=== PATIENT | male | born 1980 | race Caucasian/White ===

== ENCOUNTER 2022-02-14 11:58 | Outpatient (CLI) | payer BC, SELFPAY ==
--- NOTE | ~2022-02-14 | XR_ITS ---
EXAMINATION: XR foot RT min 3V DATE: 02/14/2022 12:19 INDICATION: Right foot pain. TECHNIQUE: 4 views of right foot were obtained. COMPARISON: None. FINDINGS: There is mild hallux valgus. No fracture. There is mild osteoarthritis of first, second, an d third metatarsophalangeal joints and second proximal interphalangeal joint. There is an enthesophyt e at plantar aspect of calcaneal tuberosity. IMPRESSION: 1. Mild hallux valgus. 2. Mild polyarticular osteoarthritis. Reviewed, dictated and finalized at location B.
== END 2022-02-14 11:59 | disposition home or self-care (01) ==
LOC: ANHIMG 12:04
PROVIDERS: PCP Family Medicine; Visit Provider Emergency Medicine
DX: M19.071 Primary osteoarthritis, right ankle and foot (principal); M20.11 Hallux valgus (acquired), right foot
CPT/HCPCS: 73630

== ENCOUNTER 2023-03-21 01:47 | Day surgery (SDC) | payer BC, SELFPAY ==
[2023-03-04 14:11] VITALS: BMI 28.8
--- NOTE | 2023-03-21 07:28 | PM.HPGS ---
History of Present Illness History of Present Illness Consent: Risks, benefits, and alternatives have been discussed and questions answered. Patient agrees to proceed with procedure. Chief complaint: rectal pain, diarrhea Narrative: Michael Leger is a 42 year old male With complaints of hemorrhoids, abdominal pain, IBS with diarrhea. He will have several loose stools each day. This has been going on for at least 15 years. He had been given prescription for dicyclomine which did not help. Review of Systems Review of Systems: All systems reviewed & are unremarkable except as noted in HPI and below PMFSH Past Medical History Medical History Diarrhea GERD (gastroesophageal reflux disease) Rectal itching Social History Social History Smoking status: Current every day smoker Tobacco type: e-cigarettes/vaping Substance use: current Substance use type: marijuana Living arrangements: with family Spiritual care concerns: No Meds Home Medications and Allergies Home Medications Medication Instructions Recorded Confirmed Type escitalopram oxalate 10 mg tablet 10 mg PO DAILY 02/06/23 03/04/23 History (Lexapro) esomeprazole magnesium 20 mg 20 mg PO DAILY 02/06/23 03/04/23 History capsule,delayed release (Nexium) trazodone 150 mg tablet 150 mg PO QHS PRN Sleep 02/06/23 03/04/23 History hyoscyamine sulfate 0.125 mg 0.125 mg PO .every 6 hours PRN 02/10/23 03/04/23 Rx tablet (Levsin) abdominal pain #120 tabs hydrocortisone 2 %-pramoxine 1 % 1 applic topical BID-TID PRN 02/11/23 03/04/23 Rx topical gel with perineal hemorrhoids #29 grams applicator Allergies Allergy/AdvReac Type Severity Reaction Status Date / Time Penicillins Allergy Severe HIVES Verified 03/21/23 08:45 sulfamethoxazole Allergy rash Verified 03/21/23 08:45 trimethoprim Allergy rash Verified 03/21/23 08:45 Exam Resp: Auscultation: clear to auscultation bilaterally Cardio: Rate: regular rate Rhythm: regular rhythm GI: GI Palp: Yes Soft to palpation and No Tenderness to palpation present (GI) Assessment and Plan Assessment and plan (1) Diarrhea: Code(s): R19.7 - Diarrhea, unspecified Status: Acute Assessment and Plan: Colonoscopy with possible biopsy or polypectomy or cautery or injection of substances.
[2023-03-21 08:46] VITALS: BP 124/83; PULSE 60; RESP 19; TEMP 36.1; O2SAT 98
[2023-03-21] MEDS: LACTATED RINGERS 1,000 ML 150 ML IV CONT (09:06)
--- NOTE | 2023-03-21 09:47 | P.PNAN_ITS ---
Anes - Initial Pre Proc Eval Procedure: Operation Date: 03/21/23 10:00 Proposed Procedures p Colonoscopy - Guido Coker MD Date/Time: 03/21/23 09:47 Surgeon: Guido Coker MD Pre Op Diagnosis: rectal pain, diarrhea Patient Data Age: 42 Gender: M Height: 1.75 m Weight: 90.2 kg Last Vital Signs Temp 97 F L 03/21/23 08:46 Pulse 60 03/21/23 08:46 Resp 19 03/21/23 08:46 BP 124/83 03/21/23 08:46 Pulse Ox 98 03/21/23 08:46 O2 Del Method Room Air 03/21/23 08:46 Allergies Allergy/AdvReac Type Severity Reaction Status Date / Time Penicillins Allergy Severe HIVES Verified 03/21/23 08:45 sulfamethoxazole Allergy rash Verified 03/21/23 08:45 trimethoprim Allergy rash Verified 03/21/23 08:45 Home Medications Medication Instructions Recorded Confirmed Type escitalopram oxalate 10 mg tablet 10 mg PO DAILY 02/06/23 03/04/23 History (Lexapro) esomeprazole magnesium 20 mg 20 mg PO DAILY 02/06/23 03/04/23 History capsule,delayed release (Nexium) trazodone 150 mg tablet 150 mg PO QHS PRN Sleep 02/06/23 03/04/23 History hyoscyamine sulfate 0.125 mg 0.125 mg PO .every 6 hours PRN 02/10/23 03/04/23 Rx tablet (Levsin) abdominal pain #120 tabs hydrocortisone 2 %-pramoxine 1 % 1 applic topical BID-TID PRN 02/11/23 03/04/23 Rx topical gel with perineal hemorrhoids #29 grams applicator Patient hx anesthesia problems: none Family hx anesthesia problems: none Results Review: All pre-operative results and documents have been reviewed as part of the pre- operative evaluation. [facility] Past Medical History Medical History Diarrhea GERD (gastroesophageal reflux disease) Rectal itching Social History Social History Smoking status: Current every day smoker Tobacco type: e-cigarettes/vaping Substance use: current Substance use type: marijuana Living arrangements: with family Spiritual care concerns: No Anes - Eval Final PreProcedure Day of Procedure 03/21/23 09:47 Patient weight: normal Heart: regular rate and rhythm Lungs: clear to auscultation Airway: Mallampati scale class II Neurological: alert and oriented Last oral intake: >/= 8 hours ASA classification: II Emergent: no Anesthetic plan: proceed Anesthesia type and monitoring: general GIVS and standard monitoring Results Review: All pre-operative results and documents have been reviewed as part of the pre- operative evaluation. Informed Consent: The patient's anesthetic plan and its attendant risks and benefits were di scussed with the patient/family/POA. Questions were solicited and answers provided to the satisfaction of the patient/family/POA.
[2023-03-21 10:09] VITALS: BP 83/57; PULSE 59; RESP 19; O2SAT 94
[2023-03-21 10:19] VITALS: BP 84/52; PULSE 60; RESP 19; O2SAT 94
[2023-03-21 10:29] VITALS: BP 114/74; PULSE 60; RESP 19; O2SAT 94
== END 2023-03-21 10:40 | disposition home or self-care (01) ==
PROVIDERS: PCP Family Medicine; Visit Provider Internal Medicine Gastroenterology
PROC: 0DJD8ZZ Inspection of Lower Intestinal Tract, Via Natural or Artificial Opening Endoscopic (ICD-10-PCS; CPT 45378; principal; 2023-03-21 10:00)
DX: R19.7 Diarrhea, unspecified (principal); R10.9 Unspecified abdominal pain; D12.8 Benign neoplasm of rectum; K64.8 Other hemorrhoids; K21.9 Gastro-esophageal reflux disease without esophagitis; F17.290 Nicotine dependence, other tobacco product, uncomplicated
CPT/HCPCS: 45380; 88305; J2001; J2704; J7120

== ENCOUNTER 2025-03-24 02:19 | Day surgery (SDC) | payer OTHER, SELFPAY ==
[2025-03-18 15:39] VITALS: BMI 29.4
--- OUTSIDE RECORDS SUMMARY | 2025-03-24 02:22 | XMS_ITS | Patient Health Record ---
Author Organization [facility] [place] Address [address] [place] [address] Care Team Providers Care Outside Parts Salesman Name Role Phone Kaden De La Cruz MD Primary Care Provider Unavail able Judy Meneses Unavailable [phone] Jessica Martinez Unavailable [phone] Karina Hernandez Unavailable [phone] Allergies Allergen (clinical drug ingredient) Drug/Non Drug Allergy documented on EMR Reaction Allergy Type Onset Date Status Penicillin Unknown Drug Allergy Active Substance with sulfonamide structure and antibacterial mechanism of action (substance) Sulfa Antibiotics Unknown Drug Allergy Active Results Component Value Reference Range Notes UDT Reviewed date:06/09/2024 05:02:38 PM Interpretation: Performing Lab: Notes/Report: THC pos 0 - 50 ng/ml Cocaine neg 0 - 300 ng/ml Amphetamine neg 0 - 1000 ng/ml Buprenorphine (BUP) neg 0 - 10 ng/ml Secobarbital (Bar) neg 0 - 300 ng/ml Oxazepam (BZO) neg 0 - 300 ng/ml 9-hzxcxydece-1,7-dzethvze-9,3-diphenylpyrrolidine (STEFFI P) neg 0 - 300 ng/ml Methamphetamine (MET) neg 0 - 1000 ng/ml Methylenedioxymethamphetamine (MDMA) neg 0 - 500 ng/ml Morphine (MOP 300/[id number]) neg 0 - 300 ng/ml Methadone (MTD) neg 0 - 300 ng/ml Phencyclidine (PCP) neg 0 - 25 ng/ml Nortriptyline (TCA) neg 0 - 1000 ng/ml Oxycodone neg 0 - 300 ng/ml x neg 0 - 300 ng/ml Reason For Referral No Information Medications Medication SIG (Take, Route, Frequency, Duration) Notes Start Date End Date Status ARIPiprazole 5 MG 1 tablet Orally Once a day for 90 days Active Sertraline HCl 100 MG 2 tablet every morning Oral Once a day for 90 days Active traZODone HCl 100 MG 1-2 tablets at bedtime Orally Once a day for 90 days As needed Active ZyrTEC-D Allergy & Congestion 5-120 MG TAKE ONE TABLET BY MOUTH TWICE DAILY Oral for 12 Days Active Albuterol Sulfate HFA 108 (90 Base) MCG/ACT Inhalation for 25 Days Not-Taking busPIRone HCl 10 MG 1 tablet Oral three times a day for 90 days three times a day, can skip third dose if needed 10/04/2024 05/08/2025 Active Albuterol Sulfate HFA 108 (90 Base) MCG/ACT INHALE 1 TO 2 PUFFS BY MOUTH AT ONSET OF SHORTNESS OF BREATH PRIOR TO EXERCISING Inhalation for 25 Days Active Vitamin D (Ergocalciferol) 1.25 MG (01129 UT) Oral for 84 Days Active Triamcinolone Acetonide 0.5 % APPLY TOPICALLY TO THE AFFECTED AREA OF FACE 1 TO 2 TIMES A DAY External for 7 Days Active Social History Tobacco Use: Social History Observation Description Date Details (start date - stop date) Unknown Sex Assigned At : Social History Observation Description Sex Assigned At Male Tobacco Control (Standard) Question Answer Notes Tobacco use: Uses tobacco in other forms When did you stop smoking? 06/07/2013 How long has it been since you last smoked? Dinorah ter than 10 years AUDIT-C (Standard) Question Answer Notes Did you have a drink contain ing alcohol in the past year? No How often did you have six o r more drinks on one occasion in the past year? Never (0 point) How many drinks did you have on a typical day when you were drinking in the past year? 1 or 2 drinks (0 point) How often did you have a dri nk containing alcohol in the past year? Monthly or less (1 point) Section Notes: Lives in [place] with 2nd of 2 yrs and his child and their 2 step children. Grew up local, 1 sibling. 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 Lives in [place] with 2nd of 2 yrs and his child and their 2 step children. Grew up local, 1 sibling. 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 Lives in [place] with 2nd of 2 yrs and his child and their 2 step children. Grew up local, 1 sibling. 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 Lives in [place] with 2nd of 2 yrs and his child and their 2 step children. Grew up local, 1 sibling. 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 Lives in [place] with 2nd of 2 yrs and his child and their 2 step children. Grew up local, 1 sibling. 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 Lives in [place] with 2nd of 2 yrs and his child and their 2 step children. Grew up local, 1 sibling. 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 Lives in [place] with 2nd of 2 yrs and his child and their 2 step children. Grew up local, 1 sibling. 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 Lives in [place] with 2nd of 2 yrs and his child and their 2 step children. Grew up local, 1 sibling. 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 Lives in [place] with 2nd of 2 yrs and his child and their 2 step children. Grew up local, 1 sibling. 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 Lives in [place] with 2nd of 2 yrs and his child and their 2 step children. Grew up local, 1 sibling. 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 Lives in [place] with 2nd of 2 yrs and his child and their 2 step children. Grew up local, 1 sibling. 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 Lives in [place] with 2nd of 2 yrs and his child and their 2 step children. Grew up local, 1 sibling. 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 Lives in [place] with 2nd of 2 yrs and his child and their 2 step children. Grew up local, 1 sibling. 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 Problems Problem Type SNOMED Code ICD Code Onset Dates Problem Status W/U Status Risk Notes Problem Mild recurrent major depression (82766131) Major depressive disorder, recurrent, mild (F33.0) Active confirmed Problem Generalized anxiety disorder (36963837) Generalized anxiety disorder (F41.1) Active confirmed Problem Chronic insomnia (235612110) Chronic insomnia (F51.04) Active confirmed Problem Nondependent cannabis abuse (104482958) Marijuana use (F12.90) Active confirmed Problem Obstructive sleep apnea (71589001) Obstructive sleep apnea (G47.33) Active confirmed Problem Panic disorder (262917186) Panic attacks (F41.0) Active confirmed Problem Moderate recurrent major depression (85261424) Moderate recurrent major depression (F33.1) Active confirmed Problem Tobacco use (751688558) Nicotine use (Z72.0) Active confirmed Vital Signs Heart Rate 69 /min 02/07/2025 Height-cm 175.26 cm 02/07/2025 Blood pressure diastolic 98 mm Hg 02/07/2025 Weight-kg 93.53 kg 02/07/2025 Height 69 in 02/07/2025 Blood pressure systolic 162 mm Hg 02/07/2025 Weight 206.2 lbs 02/07/2025 BMI 30.45 kg/m2 02/07/2025 Encounters Encounter Location Date Provider Diagnosis [facility] Reminder [facility] [address] [facility] [address] [address] 10/05/2024 Jessica Martinez [facility] [place] [address] [facility] [address] [address] 06/09/2024 Karina Hernandez Moderate recurrent major depression F33.1 ; Generalized anxiety disorder F41.1 ; Chronic insomnia F51.04 ; Panic attacks F41.0 ; Marijuana use F12.90 and Other alf (current) drug therapy Z79.899 [facility] Rem[facility] [place] [address] [facility] [address] [address] 07/07/2024 Karina Hernandez Moderate recurrent major depression F33.1 ; Generalized anxiety disorder F41.1 ; Chronic insomnia F51.04 ; Panic attacks F41.0 ; Marijuana use F12.90 and Other alf (current) drug therapy Z79.[address] [address] 07/20/2024 Jessica Hemann Moderate recurrent major depression F33.1 and Generalized anxiety disorder F41.[address] [address] 08/18/2024 Jessica Hemann Generalized anxiety disorder F41.1 ; Panic attacks F41.0 and Moderate recurrent major depression F33.[address] [address] 08/20/2024 Karina David Moderate recurrent major depression F33.1 ; Generalized anxiety disorder F41.1 ; Chronic insomnia F51.04 ; Panic attacks F41.0 ; Marijuana use F12.90 and Other alf (current) drug therapy Z79.[address] [address] 09/09/2024 Jessica Hemann Generalized anxiety disorder F41.1 ; Panic attacks F41.0 and Moderate recurrent major depression F33.[address] [address] 10/04/2024 Judy Meneses Moderate recurrent major depression F33.1 ; Generalized anxiety disorder F41.1 ; Panic attacks F41.0 ; Chronic insomnia F51.04 and Marijuana use F12.[address] [address] 11/15/2024 Judy Meneses Moderate recurrent major depression F33.1 ; Generalized anxiety disorder F41.1 ; Panic attacks F41.0 ; Chronic insomnia F51.04 and Marijuana use F12.[address] [address] 12/20/2024 Jessica Hemann Generalized anxiety disorder F41.1 ; Panic attacks F41.0 and Moderate recurrent major depression F33.[address] [address] 12/28/2024 Judy Meneses Moderate recurrent major depression F33.1 ; Generalized anxiety disorder F41.1 ; Panic attacks F41.0 ; Chronic insomnia F51.04 ; Marijuana use F12.90 and Obstructive sleep apnea G47.33 [place] [address] [place] [address] 01/18/2025 Jessica Hemann Generalized anxiety disorder F41.1 ; Panic attacks F41.0 ; Moderate recurrent major depression F33.1 and Encounter for screening for depression Z13.31 [facility], [place] [address] [place] [address] 02/07/2025 Judy Meneses Major depressive disorder, recurrent, mild F33.0 ; Generalized anxiety disorder F41.1 ; Chronic insomnia F51.04 ; Panic attacks F41.0 ; Nicotine use Z72.0 ; Encounter for screening for cardiovascular disorders Z13.6 ; Dietary counseling and surveillance Z71.3 and Encounter for screening for depression Z13.31 [facility], [place] [address] [place] [address] 02/16/2025 Jessica Hemhaylee Encounter for screening for depression Z13.31 ; Moderate recurrent major depression F33.1 and Generalized anxiety disorder F41.1 [place] [address] [place] [address] 03/16/2025 Jessica Hemhaylee Encounter for screening for depression Z13.31 ; Moderate recurrent major depression F33.1 ; Panic attacks F41.0 and Generalized anxiety disorder F41.1 [facility], [place] [address] [place] [address] 06/09/2024 Karina Hernandez [facility], [place] [address] [place] [address] 11/26/2024 Jessica Martinez [facility], [place] [address] [place] [address] 11/03/2024 Judy Meneses [facility], [place] [address] [place] [address] 11/15/2024 Judy Meneses [facility], [place] [address] [place] [address] 01/13/2025 Judy Meneses [facility], [place] [address] [place] [address] 01/13/2025 Judy Meneses Chronic insomnia F51.04 [facility], [place] [address] [place] [address] 01/31/2025 Judy Meneses [facility] [address] [place] [address] 01/31/2025 Judy Meneses [facility] [address] [place] [address] 01/31/2025 Judy Meneses [facility] [address] [place] [address] 02/01/2025 Judy Meneses Assessments Encounter Date Diagnosis (ICD Code) Assessment Notes Treatment Notes Treatment Clinical Notes Section Notes 06/09/2024 Moderate recurrent major depression (ICD-10 - F33.1) decrease lexapro to 10mg daily x 1 wk, then 5mg daily x 1 wk, then stop at the same time start sertraline 25mg qam x 1wk, then 50mg qam refer to therapy dx: moderate MDDR, PHILIP, chronic insomnia, panic attacks-currently controlled diff: trauma hx cannabis daily-discussed potential impact on sx decrease caffeine RAJNI-does not use CPAP reports long haul covid sx/lungs/brain fog BP 146/93-says very anxious today UDS +THC discuss dx and tx considerations. change or adjunct SSRI, pros/cons. Shared decision to first try zoloft. review r/b/se, possible discontinuation effects. next may increase or consider trintellix, wellbutrin, clonidine. Also consider spravato, TMS if not improving, brief overview. interested in individual counseling, refer here, sent case to dipak, she will contact pt to schedule f/u in 3-4 wks, earlier if concerns. 06/09/2024 Generalized anxiety disorder (ICD-10 - F41.1) SSRI, therapy as above decrease caffeine 12/28/2024 Moderate recurrent major depression (ICD-10 - F33.1) Depression - Improved since starting aripiprazole, still some lingering symptoms and inquires about dose increase - Reports sertraline has been beneficial Plan: - Continue Sertraline 200 mg daily for now - Increase aripiprazole to 5 mg daily - Consider switching to another medication if no significant improvement - consider trintellix, wellbutrin. Also consider spravato, TMS if not improving - Monitor for any side effects or worsening of symptoms, restlessness, involuntary movements - Continue therapy with Jessica Anxiety/Panic - Anxiety better, no panic attacks since last visit - buspirone hard to take multiple doses a day, unclear of benefit Plan: - cont sertraline and therapy as above - cont buspirone 10 mg TID for now - monitor for improvements with increasing aripiprazole Insomnia - falls asleep, has a hard time staying asleep - Trazodone no longer benefiting even fter dose increase - Disclose history on uncontrolled sleep apnea Plan: - Stop trazodone - Start hydroxyzine 50 mg, 1 -2 tablets at beditme. may take half upon waking - Practice good sleep hygiene Sleep Apnea - Discloses history of sleep apnea but not currently using CPAP machine Plan: - Encourage patient to discuss sleep apnea management with primary care provider - Explore different mask options - Consider a repeat sleep study Substance Use (Cannabis) - Daily use Plan: - Discussed potential risks of cannabis use on mental health and treatment - Encouraged cessation, monitor for worsening mood r anxiety Follow-up in 4 weeks to evaluate the patient's anxiety, sleep, and mood. Adjust medication regimen as needed based on the patient's response to treatment. 10/04/2024 Generalized anxiety disorder (ICD-10 - F41.1) Assessment and Plan: 1. Depression: reports depression ongoing, some but not signficant improvement - Plan: Continue Sertraline 200 mg daily for now. Consider switching to another medication if no significant improvement in the next follow-up. Monitor for any side effects or worsening of symptoms. Continue therapy with Jessica 2. Anxiety - anxiety still persistent, reports having one panic attack recently Plan: cont sertraline and therapy as above start buspirone 10 mg TID 2. Insomnia: - Plan: Continue Trazodone 150 mg at night as needed for sleep. Consider increasing the dose if sleep and restfulness do not improve. Practice good sleep hygiene 5. Substance Use (Cannabis): - Plan: Discussed potential risks of cannabis use on mental health and treatment Encouraged cessation, monitor for worsening mood r anxiety Follow-up in 4-6 weeks to evaluate the patient's anxiety, sleep, and mood. Adjust medication regimen as needed based on the patient's response to treatment. 10/04/2024 Moderate recurrent major depression (ICD-10 - F33.1) Assessment and Plan: 1. Depression: reports depression ongoing, some but not signficant improvement - Plan: Continue Sertraline 200 mg daily for now. Consider switching to another medication if no significant improvement in the next follow-up. Monitor for any side effects or worsening of symptoms. Continue therapy with Jessica 2. Anxiety - anxiety still persistent, reports having one panic attack recently Plan: cont sertraline and therapy as above start buspirone 10 mg TID 2. Insomnia: - Plan: Continue Trazodone 150 mg at night as needed for sleep. Consider increasing the dose if sleep and restfulness do not improve. Practice good sleep hygiene 5. Substance Use (Cannabis): - Plan: Discussed potential risks of cannabis use on mental health and treatment Encouraged cessation, monitor for worsening mood r anxiety Follow-up in 4-6 weeks to evaluate the patient's anxiety, sleep, and mood. Adjust medication regimen as needed based on the patient's response to treatment. 09/09/2024 Generalized anxiety disorder (ICD-10 - F41.1) 09/09/2024 Panic attacks (ICD-10 - F41.0) 02/16/2025 Encounter for screening for depression (ICD-10 - Z13.31) 02/16/2025 Moderate recurrent major depression (ICD-10 - F33.1) 02/07/2025 Major depressive disorder, recurrent, mild (ICD-10 - F33.0) 01/18/2025 Generalized anxiety disorder (ICD-10 - F41.1) 01/13/2025 Chronic insomnia (ICD-10 - F51.04) 12/28/2024 Generalized anxiety disorder (ICD-10 - F41.1) Depression - Improved since starting aripiprazole, still some lingering symptoms and inquires about dose increase - Reports sertraline has been beneficial Plan: - Continue Sertraline 200 mg daily for now - Increase aripiprazole to 5 mg daily - Consider switching to another medication if no significant improvement - consider trintellix, wellbutrin. Also consider spravato, TMS if not improving - Monitor for any side effects or worsening of symptoms, restlessness, involuntary movements - Continue therapy with Jessica Anxiety/Panic - Anxiety better, no panic attacks since last visit - buspirone hard to take multiple doses a day, unclear of benefit Plan: - cont sertraline and therapy as above - cont buspirone 10 mg TID for now - monitor for improvements with increasing aripiprazole Insomnia - falls asleep, has a hard time staying asleep - Trazodone no longer benefiting even fter dose increase - Disclose history on uncontrolled sleep apnea Plan: - Stop trazodone - Start hydroxyzine 50 mg, 1 -2 tablets at beditme. may take half upon waking - Practice good sleep hygiene Sleep Apnea - Discloses history of sleep apnea but not currently using CPAP machine Plan: - Encourage patient to discuss sleep apnea management with primary care provider - Explore different mask options - Consider a repeat sleep study Substance Use (Cannabis) - Daily use Plan: - Discussed potential risks of cannabis use on mental health and treatment - Encouraged cessation, monitor for worsening mood r anxiety Follow-up in 4 weeks to evaluate the patient's anxiety, sleep, and mood. Adjust medication regimen as needed based on the patient's response to treatment. 01/18/2025 Panic attacks (ICD-10 - F41.0) 03/16/2025 Moderate recurrent major depression (ICD-10 - F33.1) 12/20/2024 Generalized anxiety disorder (ICD-10 - F41.1) 12/20/2024 Panic attacks (ICD-10 - F41.0) 03/16/2025 Encounter for screening for depression (ICD-10 - Z13.31) 11/15/2024 Moderate recurrent major depression (ICD-10 - F33.1) Depression - reports depression ongoing - Reports sertraline has been beneficial Plan: - Continue Sertraline 200 mg daily for now - Consider switching to another medication if no significant improvement - consider trintellix, wellbutrin. Also consider spravato, TMS if not improving - Start aripiprazole 2 mg daily - Monitor for any side effects or worsening of symptoms. - Continue therapy with Jessica Anxiety/Panic - anxiety still persistent, having panic attacks - buspirone hard to take multiple doses a day, unclear of benefit Plan: - cont sertraline and therapy as above - cont buspirone 10 mg TID for now - monitor for improvements with aripiprazole Insomnia - falls asleep, has a hard time staying asleep - Trazodone has been beneficial Plan: - Continue trazodone, increase to 100 mg 2 tablets at bedtime - Practice good sleep hygiene 5. Substance Use (Cannabis): Plan: - Discussed potential risks of cannabis use on mental health and treatment - Encouraged cessation, monitor for worsening mood r anxiety Follow-up in 4-6 weeks to evaluate the patient's anxiety, sleep, and mood. Adjust medication regimen as needed based on the patient's response to treatment. 08/20/2024 Moderate recurrent major depression (ICD-10 - F33.1) increase sertraline to 200mg qam cont therapy diff: OCD, trauma hx cannabis daily-discussed potential impact on sx RAJNI-does not use CPAP reports long haul covid sx/lungs/brain fog having some improvement, also outside stressors increased. discuss options, shared decision to increase sertraline. review r/b/se and treatment course cont therapy f/u 6 wks, earlier if concerns -discussed transition to new provider as I am leaving the practice after this month 08/18/2024 Generalized anxiety disorder (ICD-10 - F41.1) 08/18/2024 Panic attacks (ICD-10 - F41.0) 07/20/2024 Moderate recurrent major depression (ICD-10 - F33.1) 07/07/2024 Moderate recurrent major depression (ICD-10 - F33.1) increase sertraline to 100mg qam x 2 wks, then if tolerating increase to 150mg qam in family therapy, and scheduled to start individual here with Jessica on 07/20 diff: OCD, trauma hx cannabis daily-discussed potential impact on sx RAJNI-does not use CPAP reports long haul covid sx/lungs/brain fog discuss OCD as possible, monitor. shared decision to increase, and he would like to be more aggressive. review r/b/se, depend on response may increase next visit or change/adjunct-al so may consider trintellix, wellbutrin, clonidine. Or consider spravato, TMS if appropriate therapy as above f/u 6 wks, earlier if concerns 07/07/2024 Generalized anxiety disorder (ICD-10 - F41.1) SSRI, therapy as above decrease caffeine 08/18/2024 Moderate recurrent major depression (ICD-10 - F33.1) 07/20/2024 Generalized anxiety disorder (ICD-10 - F41.1) 08/20/2024 Generalized anxiety disorder (ICD-10 - F41.1) SSRI, therapy as above decrease caffeine 03/16/2025 Panic attacks (ICD-10 - F41.0) 12/20/2024 Moderate recurrent major depression (ICD-10 - F33.1) 11/15/2024 Generalized anxiety disorder (ICD-10 - F41.1) Depression - reports depression ongoing - Reports sertraline has been beneficial Plan: - Continue Sertraline 200 mg daily for now - Consider switching to another medication if no significant improvement - consider trintellix, wellbutrin. Also consider spravato, TMS if not improving - Start aripiprazole 2 mg daily - Monitor for any side effects or worsening of symptoms. - Continue therapy with Jessica Anxiety/Panic - anxiety still persistent, having panic attacks - buspirone hard to take multiple doses a day, unclear of benefit Plan: - cont sertraline and therapy as above - cont buspirone 10 mg TID for now - monitor for improvements with aripiprazole Insomnia - falls asleep, has a hard time staying asleep - Trazodone has been beneficial Plan: - Continue trazodone, increase to 100 mg 2 tablets at bedtime - Practice good sleep hygiene 5. Substance Use (Cannabis): Plan: - Discussed potential risks of cannabis use on mental health and treatment - Encouraged cessation, monitor for worsening mood r anxiety Follow-up in 4-6 weeks to evaluate the patient's anxiety, sleep, and mood. Adjust medication regimen as needed based on the patient's response to treatment. 01/18/2025 Moderate recurrent major depression (ICD-10 - F33.1) 02/16/2025 Generalized anxiety disorder (ICD-10 - F41.1) 12/28/2024 Panic attacks (ICD-10 - F41.0) Depression - Improved since starting aripiprazole, still some lingering symptoms and inquires about dose increase - Reports sertraline has been beneficial Plan: - Continue Sertraline 200 mg daily for now - Increase aripiprazole to 5 mg daily - Consider switching to another medication if no significant improvement - consider trintellix, wellbutrin. Also consider spravato, TMS if not improving - Monitor for any side effects or worsening of symptoms, restlessness, involuntary movements - Continue therapy with Jessica Anxiety/Panic - Anxiety better, no panic attacks since last visit - buspirone hard to take multiple doses a day, unclear of benefit Plan: - cont sertraline and therapy as above - cont buspirone 10 mg TID for now - monitor for improvements with increasing aripiprazole Insomnia - falls asleep, has a hard time staying asleep - Trazodone no longer benefiting even fter dose increase - Disclose history on uncontrolled sleep apnea Plan: - Stop trazodone - Start hydroxyzine 50 mg, 1 -2 tablets at beditme. may take half upon waking - Practice good sleep hygiene Sleep Apnea - Discloses history of sleep apnea but not currently using CPAP machine Plan: - Encourage patient to discuss sleep apnea management with primary care provider - Explore different mask options - Consider a repeat sleep study Substance Use (Cannabis) - Daily use Plan: - Discussed potential risks of cannabis use on mental health and treatment - Encouraged cessation, monitor for worsening mood r anxiety Follow-up in 4 weeks to evaluate the patient's anxiety, sleep, and mood. Adjust medication regimen as needed based on the patient's response to treatment. 02/07/2025 Generalized anxiety disorder (ICD-10 - F41.1) 09/09/2024 Moderate recurrent major depression (ICD-10 - F33.1) 06/09/2024 Chronic insomnia (ICD-10 - F51.04) cont trazodone 150mg qhs prn practice good sleep hygiene 10/04/2024 Panic attacks (ICD-10 - F41.0) Assessment and Plan: 1. Depression: reports depression ongoing, some but not signficant improvement - Plan: Continue Sertraline 200 mg daily for now. Consider switching to another medication if no significant improvement in the next follow-up. Monitor for any side effects or worsening of symptoms. Continue therapy with Jessica 2. Anxiety - anxiety still persistent, reports having one panic attack recently Plan: cont sertraline and therapy as above start buspirone 10 mg TID 2. Insomnia: - Plan: Continue Trazodone 150 mg at night as needed for sleep. Consider increasing the dose if sleep and restfulness do not improve. Practice good sleep hygiene 5. Substance Use (Cannabis): - Plan: Discussed potential risks of cannabis use on mental health and treatment Encouraged cessation, monitor for worsening mood r anxiety Follow-up in 4-6 weeks to evaluate the patient's anxiety, sleep, and mood. Adjust medication regimen as needed based on the patient's response to treatment. 06/09/2024 Panic attacks (ICD-10 - F41.0) currently well managed 03/16/2025 Generalized anxiety disorder (ICD-10 - F41.1) 10/04/2024 Chronic insomnia (ICD-10 - F51.04) Assessment and Plan: 1. Depression: reports depression ongoing, some but not signficant improvement - Plan: Continue Sertraline 200 mg daily for now. Consider switching to another medication if no significant improvement in the next follow-up. Monitor for any side effects or worsening of symptoms. Continue therapy with Jessica 2. Anxiety - anxiety still persistent, reports having one panic attack recently Plan: cont sertraline and therapy as above start buspirone 10 mg TID 2. Insomnia: - Plan: Continue Trazodone 150 mg at night as needed for sleep. Consider increasing the dose if sleep and restfulness do not improve. Practice good sleep hygiene 5. Substance Use (Cannabis): - Plan: Discussed potential risks of cannabis use on mental health and treatment Encouraged cessation, monitor for worsening mood r anxiety Follow-up in 4-6 weeks to evaluate the patient's anxiety, sleep, and mood. Adjust medication regimen as needed based on the patient's response to treatment. 02/07/2025 Chronic insomnia (ICD-10 - F51.04) 12/28/2024 Chronic insomnia (ICD-10 - F51.04) Depression - Improved since starting aripiprazole, still some lingering symptoms and inquires about dose increase - Reports sertraline has been beneficial Plan: - Continue Sertraline 200 mg daily for now - Increase aripiprazole to 5 mg daily - Consider switching to another medication if no significant improvement - consider trintellix, wellbutrin. Also consider spravato, TMS if not improving - Monitor for any side effects or worsening of symptoms, restlessness, involuntary movements - Continue therapy with Jessica Anxiety/Panic - Anxiety better, no panic attacks since last visit - buspirone hard to take multiple doses a day, unclear of benefit Plan: - cont sertraline and therapy as above - cont buspirone 10 mg TID for now - monitor for improvements with increasing aripiprazole Insomnia - falls asleep, has a hard time staying asleep - Trazodone no longer benefiting even fter dose increase - Disclose history on uncontrolled sleep apnea Plan: - Stop trazodone - Start hydroxyzine 50 mg, 1 -2 tablets at beditme. may take half upon waking - Practice good sleep hygiene Sleep Apnea - Discloses history of sleep apnea but not currently using CPAP machine Plan: - Encourage patient to discuss sleep apnea management with primary care provider - Explore different mask options - Consider a repeat sleep study Substance Use (Cannabis) - Daily use Plan: - Discussed potential risks of cannabis use on mental health and treatment - Encouraged cessation, monitor for worsening mood r anxiety Follow-up in 4 weeks to evaluate the patient's anxiety, sleep, and mood. Adjust medication regimen as needed based on the patient's response to treatment. 08/20/2024 Chronic insomnia (ICD-10 - F51.04) cont trazodone 150mg qhs prn-still has a 90 day refill practice good sleep hygiene 11/15/2024 Panic attacks (ICD-10 - F41.0) Depression - reports depression ongoing - Reports sertraline has been beneficial Plan: - Continue Sertraline 200 mg daily for now - Consider switching to another medication if no significant improvement - consider trintellix, wellbutrin. Also consider spravato, TMS if not improving - Start aripiprazole 2 mg daily - Monitor for any side effects or worsening of symptoms. - Continue therapy with Jessica Anxiety/Panic - anxiety still persistent, having panic attacks - buspirone hard to take multiple doses a day, unclear of benefit Plan: - cont sertraline and therapy as above - cont buspirone 10 mg TID for now - monitor for improvements with aripiprazole Insomnia - falls asleep, has a hard time staying asleep - Trazodone has been beneficial Plan: - Continue trazodone, increase to 100 mg 2 tablets at bedtime - Practice good sleep hygiene 5. Substance Use (Cannabis): Plan: - Discussed potential risks of cannabis use on mental health and treatment - Encouraged cessation, monitor for worsening mood r anxiety Follow-up in 4-6 weeks to evaluate the patient's anxiety, sleep, and mood. Adjust medication regimen as needed based on the patient's response to treatment. 07/07/2024 Chronic insomnia (ICD-10 - F51.04) cont trazodone 150mg qhs prn practice good sleep hygiene 07/07/2024 Panic attacks (ICD-10 - F41.0) currently well managed 08/20/2024 Panic attacks (ICD-10 - F41.0) SSRI, therapy 11/15/2024 Chronic insomnia (ICD-10 - F51.04) Depression - reports depression ongoing - Reports sertraline has been beneficial Plan: - Continue Sertraline 200 mg daily for now - Consider switching to another medication if no significant improvement - consider trintellix, wellbutrin. Also consider spravato, TMS if not improving - Start aripiprazole 2 mg daily - Monitor for any side effects or worsening of symptoms. - Continue therapy with Jessica Anxiety/Panic - anxiety still persistent, having panic attacks - buspirone hard to take multiple doses a day, unclear of benefit Plan: - cont sertraline and therapy as above - cont buspirone 10 mg TID for now - monitor for improvements with aripiprazole Insomnia - falls asleep, has a hard time staying asleep - Trazodone has been beneficial Plan: - Continue trazodone, increase to 100 mg 2 tablets at bedtime - Practice good sleep hygiene 5. Substance Use (Cannabis): Plan: - Discussed potential risks of cannabis use on mental health and treatment - Encouraged cessation, monitor for worsening mood r anxiety Follow-up in 4-6 weeks to evaluate the patient's anxiety, sleep, and mood. Adjust medication regimen as needed based on the patient's response to treatment. 12/28/2024 Marijuana use (ICD-10 - F12.90) Depression - Improved since starting aripiprazole, still some lingering symptoms and inquires about dose increase - Reports sertraline has been beneficial Plan: - Continue Sertraline 200 mg daily for now - Increase aripiprazole to 5 mg daily - Consider switching to another medication if no significant improvement - consider trintellix, wellbutrin. Also consider spravato, TMS if not improving - Monitor for any side effects or worsening of symptoms, restlessness, involuntary movements - Continue therapy with Jessica Anxiety/Panic - Anxiety better, no panic attacks since last visit - buspirone hard to take multiple doses a day, unclear of benefit Plan: - cont sertraline and therapy as above - cont buspirone 10 mg TID for now - monitor for improvements with increasing aripiprazole Insomnia - falls asleep, has a hard time staying asleep - Trazodone no longer benefiting even fter dose increase - Disclose history on uncontrolled sleep apnea Plan: - Stop trazodone - Start hydroxyzine 50 mg, 1 -2 tablets at beditme. may take half upon waking - Practice good sleep hygiene Sleep Apnea - Discloses history of sleep apnea but not currently using CPAP machine Plan: - Encourage patient to discuss sleep apnea management with primary care provider - Explore different mask options - Consider a repeat sleep study Substance Use (Cannabis) - Daily use Plan: - Discussed potential risks of cannabis use on mental health and treatment - Encouraged cessation, monitor for worsening mood r anxiety Follow-up in 4 weeks to evaluate the patient's anxiety, sleep, and mood. Adjust medication regimen as needed based on the patient's response to treatment. 02/07/2025 Panic attacks (ICD-10 - F41.0) 01/18/2025 Encounter for screening for depression (ICD-10 - Z13.31) 10/04/2024 Marijuana use (ICD-10 - F12.90) Assessment and Plan: 1. Depression: reports depression ongoing, some but not signficant improvement - Plan: Continue Sertraline 200 mg daily for now. Consider switching to another medication if no significant improvement in the next follow-up. Monitor for any side effects or worsening of symptoms. Continue therapy with Jessica 2. Anxiety - anxiety still persistent, reports having one panic attack recently Plan: cont sertraline and therapy as above start buspirone 10 mg TID 2. Insomnia: - Plan: Continue Trazodone 150 mg at night as needed for sleep. Consider increasing the dose if sleep and restfulness do not improve. Practice good sleep hygiene 5. Substance Use (Cannabis): - Plan: Discussed potential risks of cannabis use on mental health and treatment Encouraged cessation, monitor for worsening mood r anxiety Follow-up in 4-6 weeks to evaluate the patient's anxiety, sleep, and mood. Adjust medication regimen as needed based on the patient's response to treatment. 06/09/2024 Marijuana use (ICD-10 - F12.90) Recommend minimize cannabis use as it can negatively impact mood, motivation, anxiety, sleep, focus/concen tration/haris ry (vigilance, elasticity, processing and attention); can also contribute to development of psychosis. Cannabis/kendra hilliard information: https://haley .nih.gov/pub lications/dr ugfacts/domitila aguilar-jenn na https://www. sama.gov/m arijuana 02/07/2025 Nicotine use (ICD-10 - Z72.0) 12/28/2024 Obstructive sleep apnea (ICD-10 - G47.33) Depression - Improved since starting aripiprazole, still some lingering symptoms and inquires about dose increase - Reports sertraline has been beneficial Plan: - Continue Sertraline 200 mg daily for now - Increase aripiprazole to 5 mg daily - Consider switching to another medication if no significant improvement - consider trintellix, wellbutrin. Also consider spravato, TMS if not improving - Monitor for any side effects or worsening of symptoms, restlessness, involuntary movements - Continue therapy with Jessica Anxiety/Panic - Anxiety better, no panic attacks since last visit - buspirone hard to take multiple doses a day, unclear of benefit Plan: - cont sertraline and therapy as above - cont buspirone 10 mg TID for now - monitor for improvements with increasing aripiprazole Insomnia - falls asleep, has a hard time staying asleep - Trazodone no longer benefiting even fter dose increase - Disclose history on uncontrolled sleep apnea Plan: - Stop trazodone - Start hydroxyzine 50 mg, 1 -2 tablets at beditme. may take half upon waking - Practice good sleep hygiene Sleep Apnea - Discloses history of sleep apnea but not currently using CPAP machine Plan: - Encourage patient to discuss sleep apnea management with primary care provider - Explore different mask options - Consider a repeat sleep study Substance Use (Cannabis) - Daily use Plan: - Discussed potential risks of cannabis use on mental health and treatment - Encouraged cessation, monitor for worsening mood r anxiety Follow-up in 4 weeks to evaluate the patient's anxiety, sleep, and mood. Adjust medication regimen as needed based on the patient's response to treatment. 11/15/2024 Marijuana use (ICD-10 - F12.90) Depression - reports depression ongoing - Reports sertraline has been beneficial Plan: - Continue Sertraline 200 mg daily for now - Consider switching to another medication if no significant improvement - consider trintellix, wellbutrin. Also consider spravato, TMS if not improving - Start aripiprazole 2 mg daily - Monitor for any side effects or worsening of symptoms. - Continue therapy with Jessica Anxiety/Panic - anxiety still persistent, having panic attacks - buspirone hard to take multiple doses a day, unclear of benefit Plan: - cont sertraline and therapy as above - cont buspirone 10 mg TID for now - monitor for improvements with aripiprazole Insomnia - falls asleep, has a hard time staying asleep - Trazodone has been beneficial Plan: - Continue trazodone, increase to 100 mg 2 tablets at bedtime - Practice good sleep hygiene 5. Substance Use (Cannabis): Plan: - Discussed potential risks of cannabis use on mental health and treatment - Encouraged cessation, monitor for worsening mood r anxiety Follow-up in 4-6 weeks to evaluate the patient's anxiety, sleep, and mood. Adjust medication regimen as needed based on the patient's response to treatment. 08/20/2024 Marijuana use (ICD-10 - F12.90) Recommend minimize cannabis use as it can negatively impact mood, motivation, anxiety, sleep, focus/concen tration/haris ry (vigilance, elasticity, processing and attention); can also contribute to development of psychosis. Cannabis/mar ijuana information: https://haley .nih.gov/pub lications/dr peoplesfacts/domitila [place] https://www. [facility].gov/m [facility] 07/07/2024 Marijuana use (ICD-10 - F12.90) Recommend minimize cannabis use as it can negatively impact mood, motivation, anxiety, sleep, focus/concen tration/haris ry (vigilance, elasticity, processing and attention); can also contribute to development of psychosis. Cannabis/mar ijuana information: https://haley .nih.gov/pub lications/dr peoplesfacts/domitila [place] https://www. 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 Anxiety appears to be situational and not significantly impacting overall functioning or quality of life at this time. Reports mood has been better, depression symptoms more mild and manageable. Plan: - Continue current medication regimen for depression and anxiety management - Encourage ongoing therapy for anxiety management strategies - Recommend implementation of stress-reduction techniques - Advise patient to follow up if anxiety worsens or begins to interfere with daily functioning Sleep Management Assessment: Patient reports improved sleep, which may be attributed to medication compliance and new work schedule. Sleep apnea was previously discussed, and patient has seen primary care physician for follow-up. Plan: - Continue current sleep regimen - Monitor for any changes in sleep quality or duration - Await results from primary care physician regarding sleep apnea evaluation Plan Of Treatment Next Appt Details Provider Name:Jessica Martinez, 04/04/2025 10:00:00 AM, [address], [address], [address], Provider Name:Judy salazar, 04/04/2025 03:30:00 PM, [address], [address], [place], [address], Provider Name:Jessica Martinez, 05/04/2025 08:00:00 AM, [address], [address], [place], [address], Provider Name:Jessica Martinez, 06/08/2025 08:00:00 AM, [address], [address], [place], [address], Provider Name:Jessica Martinez, 07/06/2025 08:00:00 AM, [address], [address], [place], [address], Insurance Providers Payer Name Payer Address Payer Phone Subscriber Number Group Number Insured Name Patient Relationship to Insured Coverage Start Date Coverage End Date [facility] [address] [place] [address] [id number] Myles Leger Self - patient is the insured 5 [facility] [address] [place] [phone] [id number] Myles Leger Self - patient is the insured 5 Medical (General) History Medical History History ICD Code Past Psychiatric History: Anxiety Disord er,PTSD,Major Depressive Episode undefined vitamin D deficiency restless leg syndrome Surgical History Surgery Date(Month/Year) hernia 2007 Hospitalization History Reason Date(Month/Year) hernia surgery 2006
[2025-03-24 06:50] VITALS: BP 109/70; PULSE 58; RESP 16; TEMP 36.8; O2SAT 96; BMI 29.9
[2025-03-24] MEDS: LACTATED RINGERS 1,000 ML 150 ML IV CONT (06:59)
--- NOTE | 2025-03-24 07:39 | P.PNAN_ITS ---
Anes - Initial Pre Proc Eval Procedure: Operation Date: 03/24/25 08:00 Proposed Procedures p Esophagogastroduodenoscopy & Colonoscopy - Jignesh Mendoza MD Date/Time: 03/24/25 07:39 Surgeon: Jignesh Mendoza MD Pre Op Diagnosis: GERD, IBS Patient Data Age: 44 Gender: M Height: 1.75 m Weight: 91.8 kg Last Vital Signs Temp 98.2 F 03/24/25 06:50 Pulse 58 L 03/24/25 06:50 Resp 16 03/24/25 06:50 BP 109/70 03/24/25 06:50 Pulse Ox 96 03/24/25 06:50 O2 Del Method Room Air 03/24/25 06:50 Allergies Allergy/AdvReac Type Severity Reaction Status Date / Time Penicillins Allergy Severe HIVES Verified 03/24/25 06:49 sulfamethoxazole Allergy rash Verified 03/24/25 06:49 trimethoprim Allergy rash Verified 03/24/25 06:49 Home Medications ?Medication ?Instructions ?Recorded ?Confirmed ?Type esomeprazole magnesium 20 mg 20 mg PO DAILY 02/06/23 03/24/25 History capsule,delayed release (Nexium) trazodone 150 mg tablet 150 mg PO QHS PRN Sleep 02/06/23 03/18/25 History hydrocortisone 2 %-pramoxine 1 % 1 applic topical BID-TID PRN 02/11/23 03/18/25 Rx topical gel with perineal hemorrhoids #29 grams applicator aripiprazole 5 mg tablet 5 mg PO DAILY 03/18/25 03/24/25 History atorvastatin 20 mg tablet 20 mg PO QPM 03/18/25 03/24/25 History sertraline 100 mg tablet 200 mg PO Q24H 03/18/25 03/24/25 History Patient hx anesthesia problems: none Family hx anesthesia problems: none Results Review: All pre-operative results and documents have been reviewed as part of the pre- operative evaluation. [facility] Past Medical History Medical History Diarrhea GERD (gastroesophageal reflux disease) Rectal itching Social History Social History Smoking status: Current every day smoker Tobacco type: e-cigarettes/vaping Substance use: current Substance use type: marijuana Living arrangements: with family Yusuf Colmenares Final PreProcedure Day of Procedure 03/24/25 07:39 Patient weight: normal Heart: regular rate and rhythm Lungs: clear to auscultation Airway: Mallampati scale class II Neurological: alert and oriented Last oral intake: >/= 8 hours ASA classification: II Emergent: no Anesthetic plan: proceed Anesthesia type and monitoring: general GIVS and standard monitoring Results Review: All pre-operative results and documents have been reviewed as part of the pre- operative evaluation. Informed Consent: The patient's anesthetic plan and its attendant risks and benefits were discussed with the patient/family/POA. Questions were solicited and answers provided to the satisfaction of the patient/family/POA.
--- NOTE | 2025-03-24 07:50 | PM.HPGS ---
History of Present Illness History of Present Illness Consent: Risks, benefits, and alternatives have been discussed and questions answered. Patient agrees to proceed with procedure. Chief complaint: GERD, IBS Narrative: Michael Leger is a 44 year old male with last colonoscopy 2022, random colon bx no colitis, still with loose stools but recently oily, also gerd on nexium Review of Systems Review of Systems: All systems reviewed & are unremarkable except as noted in HPI and below PMFSH Past Medical History Medical History Diarrhea GERD (gastroesophageal reflux disease) Rectal itching Social History Social History Smoking status: Current every day smoker Tobacco type: e-cigarettes/vaping Substance use: current Substance use type: marijuana Living arrangements: with family Meds Home Medications and Allergies Home Medications ?Medication ?Instructions ?Recorded ?Confirmed ?Type esomeprazole magnesium 20 mg 20 mg PO DAILY 02/06/23 03/24/25 History capsule,delayed release (Nexium) trazodone 150 mg tablet 150 mg PO QHS PRN Sleep 02/06/23 03/18/25 History hydrocortisone 2 %-pramoxine 1 % 1 applic topical BID-TID PRN 02/11/23 03/18/25 Rx topical gel with perineal hemorrhoids #29 grams applicator aripiprazole 5 mg tablet 5 mg PO DAILY 03/18/25 03/24/25 History atorvastatin 20 mg tablet 20 mg PO QPM 03/18/25 03/24/25 History sertraline 100 mg tablet 200 mg PO Q24H 03/18/25 03/24/25 History Allergies Allergy/AdvReac Type Severity Reaction Status Date / Time Penicillins Allergy Severe HIVES Verified 03/24/25 06:49 sulfamethoxazole Allergy rash Verified 03/24/25 06:49 trimethoprim Allergy rash Verified 03/24/25 06:49 Vital Signs Vital Signs - 24 hr 03/24/25 06:50 Temperature 98.2 F Pulse Rate 58 L Respiratory Rate 16 Blood Pressure 109/70 Pulse Oximetry 96 Oxygen Delivery Room Air Exam Const: General: comfortable and no acute distress HENMT: Face/Nose/Sinus: Normal nares present Eyes: General: appearance normal, both eyes and all related structures Neck: Neck: no JVD Resp: Auscultation: clear to auscultation bilaterally Cardio: Rate: regular rate Rhythm: regular rhythm GI: Inspection: non-distended GI Palp: Yes Soft to palpation Skin: General skin exam: normal color Neuro: General: gait normal Speech: normal speech Extrem: General: normal to inspection Psych: Mental Status: mental status grossly normal Assessment and Plan Assessment and plan (1) Diarrhea: Code(s): R19.7 - Diarrhea, unspecified Status: Acute Assessment and Plan: colonoscopy, last one negative for microscopic colitis also check stool pancreatic elastase and celiac (2) GERD (gastroesophageal reflux disease): Code(s): K21.9 - Gastro-esophageal reflux disease without esophagitis Status: Acute Assessment and Plan: egd, will check for celiac
--- NOTE | 2025-03-24 08:08 | S_PTH ---
PATIENT: Michael Leger LOC: [facility]#:[id number] AGE/SX: 44/M ROOM: RE03/24/[address]: Jignesh Mendoza MD : 1980 BED: DIS: 03/24/2025 SPEC #: [id number] RECD: 03/24/25 10:59 STATUS: RODRIGO MANCINI #: [id number] MARGARITO: 03/24/25 08:[address]: Jignesh Mendoza DEPT: [facility] Surgical RECD BY: Bhumika Sandhu ENTERED: 03/24/25 11:00 SP TYPE: Surgical OTHR DR: Kaden De La Cruz MD Tissues: A - Small Bowel Bx B - Gastric Biopsy C - Colon Polypectomy D - Colon Polypectomy E - Colon Polypectomy Procedures: Hematoxylin and Eosin Stain Gross and Microscopic Level 4
--- NOTE | 2025-03-24 08:09 | SUR.OPER ---
EGD: [id number] COLON: Start 805
[2025-03-24 08:24] VITALS: BP 82/54; PULSE 52; RESP 16; O2SAT 92
[2025-03-24 08:34] VITALS: BP 99/66; PULSE 61; RESP 21; O2SAT 98
[2025-03-24 08:44] VITALS: BP 104/74; PULSE 57; RESP 15; O2SAT 99
== END 2025-03-24 08:56 | disposition home or self-care (01) ==
PROVIDERS: PCP Family Medicine; Referring Provider Registered Nurse; Visit Provider Internal Medicine Gastroenterology
PROC: 0DJ08ZZ Inspection of Upper Intestinal Tract, Via Natural or Artificial Opening Endoscopic (ICD-10-PCS; CPT 45378; principal; 2025-03-24 08:00)
DX: D12.0 Benign neoplasm of cecum (principal); D12.3 Benign neoplasm of transverse colon; K63.5 Polyp of colon; K21.9 Gastro-esophageal reflux disease without esophagitis; F17.290 Nicotine dependence, other tobacco product, uncomplicated; F12.90 Cannabis use, unspecified, uncomplicated
CPT/HCPCS: 43239; 45385; 88305; J2003; J2704; J7120

== ENCOUNTER 2025-09-06 07:16 | Outpatient (CLI) | payer OTHER, SELFPAY ==
--- OUTSIDE RECORDS SUMMARY | 2025-09-06 07:20 | XMS_ITS | Patient Health Record ---
Author Organization [facility] [employer] [place] ([address]) Address [address] [place] [address] Care Team Providers Care Tetryl Wringer Operator Name Role Phone Asher Thrasher Primary Care Provider Shanique Robin Unavailable [phone] Allergies Allergen (clinical drug ingredient) Drug/Non Drug Allergy documented on EMR Reaction Allergy Type Onset Date Status Penicillin Unknown Drug Allergy Active Substance with sulfonamide structure and antibacterial mechanism of action (substance) Sulfa Antibiotics Unknown Drug Allergy Active Results Component Value Reference Range Notes Spirometry Reviewed date: Interpretation:Normal Performing Lab: Notes/Report: Normal SpiroPreBronchodilator_FVC 4.25 SpiroPostBronchodilator_FEF25_75 0 SpiroPreBronchodilator_FEF25_75 3.11 SpiroPreBronchodilator_FEV1 3.28 SpiroPrecentPredictionPost_FEF25_75 0 SpiroPrecentPredictionPost_FEV1 0 SpiroPrecentPredictionPost_FEV1_OVER_FVC 0 SpiroPrecentPredictionPost_FVC 0 SpiroPrecentPredictionPre_FEF25_75 77.8 SpiroPrecentPredictionPre_FEV1 82.6 SpiroPrecentPredictionPre_FEV1_OVER_FVC 95.5 SpiroPrecentPredictionPre_FVC 86.7 SpiroPredicted_FEF25_75 4 SpiroPreBronchodilator_FEV1_OVER_FVC 77.21 SpiroPreBronchodilator_PEF 4.55 SpiroPostBronchodilator_FVC 0 SpiroPostBronchodilator_FEV1 0 SpiroPostBronchodilator_FEV1_OVER_FVC 0 SpiroPostBronchodilator_PEF 0 SpiroPredicted_FVC 4.9 SpiroPredicted_FEV1 3.97 SpiroPredicted_FEV1_OVER_FVC 80.87 SpiroPredicted_PEF 8.91 Reason For Referral No Information Medications Medication SIG (Take, Route, Frequency, Duration) Notes Start Date End Date Status Nasal [place] 0.05 % 4 sprays (2 sprays i n each nostril) Nasally Twice a day Active Albuterol Sulfate HFA 108 (90 Base) MCG/ACT 2 puffs as needed Inhalation every 4 hrs; Duration: 30 days Active Budesonide-Formoterol Fumarate 80-4.5 MCG/ACT 2 puffs Inhalation Twice a day; Duration: 30 days Active Budesonide 32 MCG/ACT 1 spray Nasally Tw ice a day; Duration: 30 days 08/03/2025 Active EPINEPHrine 0.3 MG/0.3ML as directed Inj ection as needed; Duration: 30 days 08/03/2025 Active Cetirizine HCl 10 MG 1 tablet Orally Onc e a day; Duration: 30 days 08/03/2025 Active SIT (Traditional) variable - see record per schedule subcutaneous per schedule; Duration: 999 08/03/2025 Active Social History Tobacco Use: Social History Observation Description Date Details (start date - stop date) Never Smoker NA - NA Sex Assigned At : Social History Observation Description Sex Assigned At Male Tobacco Control (Standard) Question Answer Notes Tobacco use: Nonsmoker AUDIT-C (Standard) Question Answer Notes Did you have a drink containing alcohol in the p ast year? No Points 0 Interpretation Negative Problems Problem Type SNOMED Code ICD Code Onset Dates Problem Status W/U Status Risk Notes Problem Chronic allergic conjunctivitis (85220165) Other chronic allergic conjunctivitis (H10.45) Active confirmed Problem Allergic rhinitis caused by pollen (disorder) (13111162) Allergic rhinitis due to pollen (J30.1) Active confirmed Problem Allergic rhinitis (79201533) Other allergic rhinitis (J30.89) Active confirmed Problem Uncomplicated mild persistent asthma (154275201) Mild persistent asthma, uncomplicated (J45.30) Active confirmed Problem Allergic rhinitis caused by animal hair and dander (023594187574721) Allergic rhinitis due to animal (cat) (dog) hair and dander (J30.81) Active confirmed Problem Chronic rhinitis (59226000) Chronic rhinitis (J31.0) Active confirmed Vital Signs Blood pressure diastolic 87 mm Hg 08/03/2025 Oximetry 98 % 08/03/2025 Height 69 in 08/03/2025 Blood pressure systolic 148 mm Hg 08/03/2025 Weight 209.4 lbs 08/03/2025 BMI 30.92 kg/m2 08/03/2025 Encounters Encounter Location Date Provider Diagnosis [address] [address] 07/12/2025 Shanique Zamora Allergic rhinitis du e to pollen J30.1 ; Shortness of breath R06.02 ; Allergic rhinitis due to animal (cat) (dog) hair and dander J30.81 ; Other allergic rhinitis J30.89 and Other chronic allergic conjunctivitis H10.[address] [address] 08/03/2025 Shanique Zamora Allergic rhinitis du e to pollen J30.1 ; Mild persistent asthma, uncomplicated J45.30 ; Allergic rhinitis due to animal (cat) (dog) hair and dander J30.81 ; Other allergic rhinitis J30.89 and Other chronic allergic conjunctivitis H10.[address] [address] 08/03/2025 Shanique Zamora [address] [address] 08/10/2025 Shanique Zamora [address] [address] 09/05/2025 Shanique Zamora Assessments Encounter Date Diagnosis (ICD Code) Assessment Notes Treatment Notes Treatment Clinical Notes Section Notes 07/12/2025 Allergic rhinitis due to pollen (ICD-10 - J30.1) Unfortunately, Michael is unable to stay for skin testing and spirometry today. Given the history and symptoms, recommend skin testing to common aeroallergens to determine atopic status. 07/12/2025 Shortness of breath (ICD-10 - R06.02) Possible asthma. Start a trial of Symbicort and f/u in 2 weeks with spirometry and skin testing. 08/03/2025 Allergic rhinitis due to pollen (ICD-10 - J30.1) Given the history and symptoms, skin testing was performed to common aeroallergens to determine atopic status. Michael clearly suffers from atopic disease based upon our skin testing today. Accordingly, we have introduced a new, aggressive medication regimen, discussed nasal washes and allergy-specific avoidance measures. We also discussed adjunctive therapies including subcutaneous, specific allergen immunotherapy as relates to the treatment and prevention of atopic disease. He is currently considering the risks, benefits and alternatives to this care. Risks: bleeding, infection, allergic reaction, anaphylaxis; Benefits: reduced need for medications, improved symptoms, disease modification. 08/03/2025 Mild persistent asthma, uncomplicated (ICD-10 - J45.30) Spirometry today is normal and ACT 21. Continue Symbicort and prn albuterol. Much improvement in symptoms. 08/03/2025 Allergic rhinitis due to animal (cat) (dog) hair and dander (ICD-10 - J30.81) 07/12/2025 Allergic rhinitis due to animal (cat) (dog) hair and dander (ICD-10 - J30.81) 07/12/2025 Other allergic rhinitis (ICD-10 - J30.89) 08/03/2025 Other allergic rhinitis (ICD-10 - J30.89) 08/03/2025 Other chronic allergic conjunctivitis (ICD-10 - H10.45) Given ocular signs and symptoms I encouraged allergy avoidance measures and meds as above. If symptoms persist, consider adding additional medications including intraocular antihistamine/mas t cell stabilizer, PRN 07/12/2025 Other chronic allergic conjunctivitis (ICD-10 - H10.45) Given ocular signs and symptoms I encouraged allergy avoidance measures and meds as above. If symptoms persist, consider adding additional medications including intraocular antihistamine/mas t cell stabilizer, PRN 08/03/2025 Other Plan Of Treatment Next Appt Details Provider Name:Shanique hernandez, 09/07/2025 07:40:00 AM, [address] [facility], [address], [place], [address], Insurance Providers Payer Name Payer Address Payer Phone Subscriber Number Group Number Insured Name Patient Relationship to Insured Coverage Start Date Coverage End Date [facility] [address] [place] [address] [id number] Michael Leger Self - patient is the insured 5 Medical (General) History Medical History History ICD Code Chronic rhinitis J31.0 Shortness of breath R06.02 Surgical History Surgery Date(Month/Year) Hernia Surgery
--- OUTSIDE RECORDS SUMMARY | 2025-09-06 07:21 | XMS_ITS | Clinical Summary ---
Author Organization [address] Address [address] [place] [phone] Care Team Providers Care Oyster Harvester Name Role Phone Vicki Luna NP Primary Care Provider [phone] Allergies Active Allergy Reactions Criticality Noted Date Comments Penicillin Hives Medium 04/21/2025 Sulfa (Sulfonamide Antibiotics) Hives Medium 03/28 Medications traZODone (DESYREL) 100 mg tablet daily Active ARIPiprazole (ABILIFY) 5 mg tablet daily Active atorvastatin (LIPITOR) 20 mg tabletIndications: Mixed hyperlipidemia Take 1 tablet (20 mg total) by mouth daily 90 tablet 3 04/21/20 25 Active ergocalciferol (VITAMIN D) 50,000 unit capsuleIndications :Vitamin D deficiency Take 1 capsule (50,000 Units total) by mouth once a week 12 capsule 3 04/21/20 25 Active albuterol HFA (PROVENTIL HFA,VENTOLIN HFA,PROAIR HFA) 90 mcg/actuation inhaler Inhale 2 puffs every 6 (six) hours as needed for wheezing 1 each 3 04/21/20 25 Active Trintellix 20 mg tabletIndications: Moderate recurrent major depression (HCC) Take 1 tablet (20 mg total) by mouth daily Active tacrolimus (PROTOPIC) 0.1 % ointment APPLY TO RASH ON TRUNK AND EXTREMITIES TWICE DAILY NEEDED 08/09/20 25 Active EPINEPHrine 0.3 mg/0.3 mL auto-injection syringe ADMINISTER THE CONTENTS OF 1 PEN IN THE MUSCLE NEEDED FOR ANAPHYLAXIS DIRECTED 08/03/20 25 Active budesonide-formote roL (SYMBICORT) 80-4.5 mcg/actuation inhaler Inhale 2 puffs 2 (two) times a day 07/12/20 25 Active tirzepatide, weight loss, (Zepbound) 2.5 mg/0.5 mL pen injectorIndication s:BMI 31.0-31.9,adult,Ob structive sleep apnea Inject 0.5 mL (2.5 mg total) under the skin every 7 days 2 mL 08/29/20 25 Active sertraline (ZOLOFT) 100 mg tablet Take 2 tablets (200 mg total) by mouth daily Discontin ued(Patie nt Reported) triamcinolone (KENALOG) 0.5 % ointment APPLY TOPICALLY TO THE AFFECTED AREA OF FACE 1 TO 2 TIMES A DAY External; Duration: 7 Days 025 Discontin ued(Patie nt Reported) nystatin cream Apply topically 2 (two) times a day To groin 30 g 3 04/21/20 25 025 Discontin ued(Patie nt Reported) Active Problems Problem Noted Date Diagnosed Date BMI 31.0-31.9,adult 08/29/2025 Assessment & Plan (08/29/2025 8:35 AM PATIENT REGISTRATION MANAGER): Discussed the patient's BMI. The BMI is above average. BMI management plan is completed. BMI Follow-up includes: nutrition counseling, exercise counseling and education provided. Encouraged regular physical activity--moderate activity for a total of 150 minutes per week over 3-5 days. Encouraged healthy diet with regular fresh fruits and vegetables limited in processed carbohydrates. Orders: tirzepatide, weight loss, (Zepbound) 2.5 mg/0.5 mL pen injector; Inject 0.5 mL (2.5 mg total) under the skin every 7 days Chronic insomnia 04/21/2025 Assessment & Plan (08/29/2025 8:35 AM PATIENT REGISTRATION MANAGER): Assessment & Plan (04/21/2025 4:41 PM CDT): Follows with psychiatry who manages his insomnia. He takes trazodone nightly. Generalized anxiety disorder 04/21/2025 Assessment & Plan (08/29/2025 8:35 AM PATIENT REGISTRATION MANAGER): Assessment & Plan (04/21/2025 4:41 PM CDT): Panic disorder 04/21/2025 Obstructive sleep apnea 04/21/2025 Assessment & Plan (08/29/2025 8:35 AM PATIENT REGISTRATION MANAGER): Orders: tirzepatide, weight loss, (Zepbound) 2.5 mg/0.5 mL pen injector; Inject 0.5 mL (2.5 mg total) under the skin every 7 days Assessment & Plan (04/21/2025 4:41 PM CDT): Orders: Ambulatory referral to Sleep Medicine; Future CBC with auto differential; Future Comprehensive metabolic panel; Future Moderate recurrent major depression 04/21/2025 Assessment & Plan (08/29/2025 8:35 AM PATIENT REGISTRATION MANAGER): Assessment & Plan (04/21/2025 4:41 PM CDT): Irritable bowel syndrome with diarrhea Assessment & Plan (04/21/2025 4:41 PM CDT): Orders: Ambulatory referral to Gastroenterology; Future Lipase; Future Amylase; Future Rosacea 04/21/2025 Assessment & Plan (04/21/2025 4:41 PM CDT): Referral to Dermatology for further management. Orders: Ambulatory referral to Dermatology; Future Vitamin D deficiency 04/21/2025 Assessment & Plan (08/29/2025 8:35 AM PATIENT REGISTRATION MANAGER): Continue vitamin d 27049 international units weekly . Assessment & Plan (04/21/2025 4:41 PM CDT): Orders: Vitamin D 25 hydroxy; Future ergocalciferol (VITAMIN D) 50,000 unit capsule; Take 1 capsule (50,000 Units total) by mouth once a week Mixed hyperlipidemia 04/21/2025 Assessment & Plan (08/29/2025 8:35 AM PATIENT REGISTRATION MANAGER): Assessment & Plan (04/21/2025 4:41 PM CDT): Orders: Lipid panel; Future atorvastatin (LIPITOR) 20 mg tablet; Take 1 tablet (20 mg total) by mouth daily Asthma due to environmental allergies 04/21/2025 Assessment & Plan (04/21/2025 4:41 PM CDT): Resolved Problems Problem Noted Date Diagnosed Date Resolved Date Mild recurrent major depression 04/21/2025 04/21/2025 BMI 29.0-29.9,adult 04/21/2025 08/29/20 Assessment & Plan (04/21/2025 4:41 PM CDT): Encouraged regular physical activity--moderate activity for a total of 150 minutes per week over 3-5 days. Encouraged healthy diet with regular fresh fruits and vegetables limited in processed carbohydrates. Encounters Date Type Department Care Team Description 08/29/2025 8:00 AM PATIENT REGISTRATION MANAGER Office Visit [facility] Medical [facility] at [address] [address] Vicki Luna NP BMI 31.0-31.9,adult (Primary Dx); Encounter for immunization; Generalized anxiety disorder; Vitamin D deficiency; Obstructive sleep apnea; Moderate recurrent major depression (HCC); Mixed hyperlipidemia; Chronic insomnia 06/28/2025 Results Follow-Up [facility] at [address] [address] Vicki Luna NP Lipid panel, Comprehensive metabolic panel, CBC with auto differential, Additional followed-up results: 4 06/28/2025 Results Follow-Up [facility] at [address] [address] Vicki Luna NP RUQ 06/23/2025 Orders Only [facility] at [address] [address] Vicki Luna NP 06/14/2025 1:58 PM CDT - 06/14/2025 11:59 PM CDT Hospital Encounter [id number] [place] [address] Abdominal pain Discharge Disposition: Discharge to home or self care from Last 3 Months Immunizations Immunization Administration Dates Next Due Influenza, Trivalent, Preservative Free, Intramu scular 08/29/2025 Tdap 11/19/2020 Surgical History Surgery Date Site/Laterality Comments HERNIA REPAIR 10/27/2005 - 10/26/2006 Medical History Medical History Date Comments Hyperlipidemia Vitamin D deficiency Anxiety Depression Sleep apnea History of chicken pox Family History Medical History Relation Name Comments Dementia Father Diabetes Father Anxiety disorder Mother Relation Name Status Comments Father Alive Mother Alive Social History Tobacco Use Types Packs/Day Years Used Date Smoking Tobacco: Former Cigarettes 1 17 S tarted: 1994 Passive Smoke Exposure: Past Smokeless Tobacco: Never Tobacco Cessation:Counseling Given: Not Answered Alcohol Use Standard Drinks/Week Comments Never 0 (1 standard drink = 0.6 oz pur e alcohol) PHQ-2 Answer Date Recorded PHQ-2 Total Score (If total score is 3 or more points, staff should administer the PHQ-9) 2 08/29/2025 PHQ-9 Answer Date Recorded PHQ-9 Total Score 18 04/21/2025 AUDIT-C Answer Date Recorded Q1: How often do you have a drink containing alcohol? Never 08/29/2025 Q2: How many drinks containi ng alcohol do you have on a typical day when you are drinking? Patient does not drink Q3: How often do you have si x or more drinks on one occasion? Never 08/29/2025 Sex and Gender Information Value Date Recorded Sex Assigned at Not on file Legal Sex Male 3:59 PM CDT Gender Identity Not on file Sexual Orientation Not on file Last Filed Vital Signs Vital Sign Reading Time Taken Comments Blood Pressure 120/70 08/29/2025 7:58 AM PATIENT REGISTRATION MANAGER Pulse 72 08/29/2025 7:58 AM PATIENT REGISTRATION MANAGER Temperature 36.4 C (97.6 F) 08/29/2025 7:58 AM PATIENT REGISTRATION MANAGER Respiratory Rate 16 08/29/2025 7:58 AM PATIENT REGISTRATION MANAGER Oxygen Saturation 98% 08/29/2025 7:58 AM PATIENT REGISTRATION MANAGER Inhaled Oxygen Concentration - - Weight 97.1 kg (214 lb) 08/29/2025 7:58 AM PATIENT REGISTRATION MANAGER Height 175.3 cm (5' 9) 08/29/2025 7:58 AM PATIENT REGISTRATION MANAGER Body Mass Index 31.6 08/29/2025 7:58 AM PATIENT REGISTRATION MANAGER Plan of Treatment Health Maintenance Due Date Last Done Comments Pneumococcal vaccine <65 (1 of 2 - PCV) 1999 Regular Well Visit/Exam 18-64 04/21/2026 04/21/2025 Covid-19 Vaccine (3 - 2024- season) 2026 10/25/2021, 12/29/2020 Postponed from 06/27/2025 (Patient declined, but will receive in the future) Depression Screening 08/29/2026 08/29/2025, 04/21/2025, 04/21/2025 Colon Cancer Screening-Colonoscopy 03/24/2028 03/24/2025, 12/25/2024 DTaP/Tdap/Td Vaccine (2 - Td or Tdap) 11/19/2030 11/19/2020 Hepatitis C Screening Completed 06/23/2025 Influenza Vaccine Completed 08/29/2025 HPV Vaccines Discontinued Hepatitis B Screening Discontinued Procedures Procedure Name Priority Date/Time Associated Diagnosis Comments VITAMIN D 25 HYDROXY Routine 06/23/2025 6:42 AM CDT THYROID FUNCTION CASCADE Routine 06/23/2025 6:42 AM CDT PSA SCREEN Routine 06/23/2025 6:42 AM CDT CBC WITH AUTO DIFFERENTIAL Routine 06/23/2025 6:42 AM CDT COMPREHENSIVE METABOLIC PANEL Routine 06/23/2025 6:42 AM CDT LIPID PANEL Routine 06/23/2025 6:42 AM CDT HEPATITIS C ANTIBODY Routine 06/23/2025 6:42 AM CDT US RUQ Schedule Routine, Read Routine (OP Routine) 06/14/2025 2:37 PM CDT Abdominal pain COLONOSCOPY Routine 03/24/2025 from Last 3 Months or Most Recently Relevant to Health Maintenance Results * Thyroid Function [place] (06/23/2025 6:42 AM CDT) [facility] TSH 3.48 0.40 - 4.50 mIU/L [facility] 06/23/2025 6:42 AM CDT 06/23/2025 6:43 AM CDT Vicki Luna NP LAB BLOOD ORDERABLES Final Result Performing Organization Address [facility] Co de Phone Number [facility] [address] [place] [address] * PSA screen (06/23/2025 6:42 AM CDT) [facility] PSA 0.22 < OR = 4.00 ng/mL [facility] Comment: The total PSA value from this assay system is standardized against the WHO standard. The test result will be approximately 20% lower when compared to the equimolar-standardized total PSA (Yessica [place]). Comparison of serial PSA results should be interpreted with this fact in mind. This test was performed using the Siemens chemiluminescent method. Values obtained from different assay methods cannot be used interchangeably. PSA levels, regardless of value, should not be interpreted as absolute evidence of the presence or absence of disease. 06/23/2025 6:42 AM CDT 06/23/2025 6:43 AM CDT Vicki Luna NP LAB BLOOD ORDERABLES Final Result Performing Organization Address [facility] Co de Phone Number [facility] [address] [place] [address] * CBC with auto differential (06/23/2025 6:42 AM CDT) [facility] WBC 7.2 3.8 - 10.8 Thousand/u L [facility] RBC, POC 5.11 4.20 - 5.80 Million/uL [facility] Hgb 15.1 13.2 - 17.1 g/dL [facility] Hct 46.0 38.5 - 50.0 % [facility] MCV 90.0 80.0 - 100.0 fL [facility] MCH 29.5 27.0 - 33.0 pg [facility] MCHC 32.8 32.0 - 36.0 g/dL [facility] Comment: For adults, a slight decrease in the calculated MCHC value (in the range of 30 to 32 g/dL) is most likely not clinically significant; however, it should be interpreted with caution in correlation with other red cell parameters and the patient's clinical condition. Rdw 12.9 11.0 - 15.0 % [facility] Platelets 241 140 - 400 Thousand/u L [facility] MPV 11.5 7.5 - 12.5 fL [facility] Neutrophils, abs 4,586 1,500 - 7,800 cells/uL [facility] Lymphocytes, abs 1,714 850 - 3,900 cells/uL [facility] Monocyte abs 684 200 - 950 cells/uL [facility] Eosinophils, abs 158 15 - 500 cells/uL [facility] Basophils, abs 58 0 - 200 cells/uL [facility] Neutrophils 63.7 % [facility] Lymphocyte pct 23.8 % [facility] Monocytes 9.5 % [facility] Eosinophils 2.2 % [facility] Basophils 0.8 % [facility] 06/23/2025 6:42 AM CDT 06/23/2025 6:43 AM CDT us Vicki Luna NP LAB BLOOD ORDERABLES Final Result [facility] [address] [address] [place] [phone] * Hepatitis C antibody (06/23/2025 6:42 AM CDT) Hep C Ab NON-REACTI VE NON-REACT FRANCES [facility] Comment: HCV antibody was non-reactive. There is no laboratory evidence of HCV infection. In most cases, no further action is required. However, if recent HCV exposure is suspected, a test for HCV RNA (test code 12029) is suggested. For additional information please refer to http://Cloopen.TheraCoat/faq/ISS19y8 (This link is being provided for informational/ educational purposes only.) 06/23/2025 6:42 AM CDT 06/23/2025 6:43 AM CDT Vicki Luna NP LAB MICROBIOLOGY - GENERAL ORDERABLES Final Result Performing Organization Address [facility] de Phone Number [facility] [address] [place] [address] * Vitamin D 25 hydroxy (06/23/2025 6:42 AM CDT) [facility] Vitamin D 25-OH 61 30 - 100 ng/mL [facility] Comment: Vitamin D Status 25-OH Vitamin D: Deficiency: <20 ng/mL Insufficiency: 20 - 29 ng/mL Optimal: > or = 30 ng/mL For 25-OH Vitamin D testing on patients on D2-supplementation and patients for whom quantitation of D2 and D3 fractions is required, the QuestAssure[facility](TM) 25-OH VIT D, (D2,D3), LC/MS/MS is recommended: order code 37998 (patients >2yrs). See Note 1 Note 1 For additional information, please refer to http://Cloopen.Redbeacon/faq/NXF339 (This link is being provided for informational/ educational purposes only.) 06/23/2025 6:42 AM CDT 06/23/2025 6:43 AM CDT Vicki Luna NP LAB BLOOD ORDERABLES Final Result Performing Organization Address [facility] Co de Phone Number [facility] [address] [place] [address] * Lipid panel (06/23/2025 6:42 AM CDT) Cholesterol 161 <200 mg/dL [facility] HDL 48 > OR = 40 mg/dL [facility] Triglycerides 148 <150 mg/dL [facility] LDL 88 mg/dL (calc) [facility] Comment: Reference range: <100 Desirable range <100 mg/dL for primary prevention; <70 mg/dL for patients with CHD or diabetic patients with > or = 2 CHD risk factors. LDL-C is now calculated using the Maury calculation, which is a validated novel method providing better accuracy than the Friedewald equation in the estimation of LDL-C. Víctor SS et al. ALIA. 2013;310(19): 8239-0544 (http://education.Redbeacon/faq/XWR128) Chol/HDL ratio 3.4 <5.0 (calc) [facility] Non-HDL, (LDL+VLDL) 113 <130 mg/dL (calc) [facility] Comment: For patients with diabetes plus 1 major ASCVD risk factor, treating to a non-HDL-C goal of <100 mg/dL (LDL-C of <70 mg/dL) is considered a therapeutic option. 06/23/2025 6:42 AM CDT 06/23/2025 6:43 AM CDT Vicki Luna STEAMING MACHINE OPERATOR LAB BLOOD ORDERABLES Final Result [facility] [address] [address] [place] [phone] * Comprehensive metabolic panel (06/23/2025 6:42 AM CDT) Pathologist [facility] Glucose 93 65 - 99 mg/dL [facility] Comment: Fasting reference interval BUN 14 7 - 25 mg/dL [facility] Creatinine 1.03 0.60 - 1.29 mg/dL [facility] eGFR 91 > OR = 60 mL/min/1.7 3m2 [facility] BUN/creat ratio SEE NOTE: 6 - 22 (calc) [facility] Comment: Not Reported: BUN and Creatinine are within reference range. Sodium 139 135 - 146 mmol/L [facility] Potassium, pl 4.1 3.5 - 5.3 mmol/L [facility] Chloride 103 98 - 110 mmol/L [facility] CO2 27 20 - 32 mmol/L [facility] Calcium 9.0 8.6 - 10.3 mg/dL [facility] Protein, sr 7.0 6.1 - 8.1 g/dL [facility] Albumin 4.4 3.6 - 5.1 g/dL [facility] GLOBULIN 2.6 1.9 - 3.7 g/dL (calc) [facility] Alb/glob ratio 1.7 1.0 - 2.5 (calc) [facility] Bilirubin, total 0.6 0.2 - 1.2 mg/dL [facility] Alk phos 51 36 - 130 U/L [facility] AST 23 10 - 40 U/L [facility] ALT (SGPT) 26 9 - 46 U/L [facility] 06/23/2025 6:42 AM CDT 06/23/2025 6:43 AM CDT us Vicki Luna STEAMING MACHINE OPERATOR LAB BLOOD ORDERABLES Final Result [facility] [address] [address] [address] * US RUQ (06/14/2025 2:37 PM CDT) Anatomical Region Laterality Modality Abdomen N/A Ultrasound 06/27/2025 11:2 9 PM CDT Narrative 06/27/2025 11:31 PM CDT EXAM DESCRIPTION: US RUQ REASON FOR STUDY: oily stool, abdominal pain intermittently for 2 years, look at liver, gallbladder, and pancreas TECHNIQUE: Ultrasound of the right upper quadrant of the abdomen was performed with grayscale and color doppler. COMPARISON: None FINDINGS: PANCREAS: Visualized portions of the pancreas are within normal limits. Portions of the pancreatic body and tail are obscured due to bowel gas. LIVER: The liver demonstrates an increase in echotexture with attenuation of the ultrasound beam characteristic of fatty infiltration. No cystic or solid mass lesions were seen within the liver. The liver measures 19 cm in greatest diameter. GALLBLADDER: The gallbladder appears unremarkable. No cholelithiasis. No gallbladder wall thickening or pericholecystic fluid. No positive sonographic [place] sign reported. BILIARY: There is no intrahepatic or extrahepatic biliary ductal dilatation. Common bile duct measures 4 mm in diameter. RIGHT KIDNEY: Normal size. Normal echogenicity. No solid mass or cyst. No hydronephrosis. Measures 10.4 cm in length. OTHER: No other significant findings. IMPRESSION: Fatty infiltration of the liver. Otherwise negative right upper quadrant ultrasound. THIS IS AN ELECTRONICALLY VERIFIED FINAL REPORT 06/27/2025 11:31 PM - Electronically signed by Emmanuel Perea M.D. KT: ELEUTERIO Report ID: [id number] Reading Location: [id number] Procedure Note Emmanuel Perea MD - 06/27/2025 EXAM DESCRIPTION: US RUQ REASON FOR STUDY: oily stool, abdominal pain intermittently for 2 years, look at liver, gallbladder, and pancreas TECHNIQUE: Ultrasound of the right upper quadrant of the abdomen wasperformed with grayscale and color doppler. COMPARISON: None FINDINGS: PANCREAS: Visualized portions of the pancreas are withinnormal limits. Portions of the pancreatic body and tail are obscured due to bowel gas. LIVER: The liver demonstrates an increase in echotexture withattenuation of the ultrasound beam characteristic of fatty infiltration. No cystic orsolid mass lesions were seen within the liver. The liver measures 19 cm ingreatest diameter. GALLBLADDER: The gallbladder appears unremarkable. No cholelithiasis.No gallbladder wall thickening or pericholecystic fluid. No positivesonographic [place] sign reported. BILIARY: There is no intrahepatic or extrahepatic biliary ductaldilatation. Common bile duct measures 4 mm in diameter. RIGHT KIDNEY: Normal size. Normal echogenicity. No solid mass or cyst.No hydronephrosis. Measures 10.4 cm in length. OTHER: No other significant findings. IMPRESSION: Fatty infiltration of the liver. Otherwise negative rightupper quadrant ultrasound. THIS IS AN ELECTRONICALLY VERIFIED FINAL REPORT 06/27/2025 11:31 PM - Electronically signed by Emmanuel Perea M.D. KT: ELEUTERIO Report ID: [id number] Reading Location: [place] [address] us Vicki Luna NP IMG US PROCEDURES Final Re sult * (ABNORMAL) COLONOSCOPY (03/24/2025) Scribed Colonoscopy Abnormal Impressions Mely Hutson MA - 03/24/2025 Repeat 3 years Historical Provider MD HEALTH MAINTENANCE Final Result from Last 3 Months or Most Recently Relevant to Health Maintenance Insurance [facility] CHOICE PLUS Care Teams Oyster Harvester Relationship Specialty Start Date End Date Vicki Luna NP [address] [facility] [address] [place] [address] PCP - General Internal Medicine 06/24/25
--- OUTSIDE RECORDS SUMMARY | 2025-09-06 07:21 | XMS_ITS | Patient Health Record ---
Author Organization [facility] Address [address] [place] [address] Care Team Providers Care Safe Deposit Attendant Name Role Phone Kaden De La Cruz MD Primary Care Provider Unavail able Judy Meneses Unavailable [phone] Jessica Martinez Unavailable [phone] Allergies Allergen (clinical drug ingredient) Drug/Non Drug Allergy documented on EMR Reaction Allergy Type Onset Date Status Penicillin Unknown Drug Allergy Active Substance with sulfonamide structure and antibacterial mechanism of action (substance) Sulfa Antibiotics Unknown Drug Allergy Active Reason For Referral No Information Medications Medication SIG (Take, Route, Frequency, Duration) Notes Start Date End Date Status Albuterol Sulfate HFA 108 (90 Base) MCG/ACT Aerosol Solution Inhalation; Duration: 25 Days Not-Taking ZyrTEC-D Allergy & Congestion 5-120 MG Tablet Extended Release 12 Hour TAKE ONE TABLET BY MOUTH TWICE DAILY Oral; Duration: 12 Days Active ARIPiprazole 5 MG Tablet 1 tablet Orally Once a day 07/05/2025 Active Triamcinolone Acetonide 0.5 % Ointment APPLY TOPICALLY TO THE AFFECTED AREA OF FACE 1 TO 2 TIMES A DAY External; Duration: 7 Days Active Vitamin D (Ergocalciferol) 1.25 MG (31796 UT) Capsule Oral; Duration: 84 Days Active Trintellix 20 MG Tablet 1 tablet Orally Once a day; Duration: 30 days PA approved 07/12/2025 Active Albuterol Sulfate HFA 108 (90 Base) MCG/ACT Aerosol Solution INHALE 1 TO 2 PUFFS BY MOUTH AT ONSET OF SHORTNESS OF BREATH PRIOR TO EXERCISING Inhalation; Duration: 25 Days Active traZODone HCl 100 MG Tablet 1-2 tablets at bedtime Orally Once a day As needed 07/05/2025 Active Social History Tobacco Use: Social History Observation Description Date Details (start date - stop date) Unknown Sex Assigned At : Social History Observation Description Sex Assigned At Male Social History Miscellaneous: Social Info Question Answer Notes Advance Care Planning Are you your own decision-maker Yes Do you have Power of Tape Transferrer for Health or [facility]? No Safety issues: Are there any firearms in the house? No Social History Social Info Question Answer Notes Household: Marital Status: Number of Adults in household: 2 Number of Children in Household: 3 Level of Education: Finished College Drug/Alcohol: Social Info Question Answer Notes Drugs Have you used drugs other than those for medical reasons in the past 12 months? Yes Methamphetamine? No Crack? No LSD? No Ecstacy? No Prescription opiates? No Marijuana? Yes Ketamine? No PCP? No Is there a minor (18 years or younger) at risk at home? No Are you still using? Yes Do you want treatment? No AUDIT-C (Standard) Did you have a drink containing alc ohol in the past year? No How often did you have six or more drinks on one occasion in the past year? Never (0 point) How many drinks did you have on a typical day when you were drinking in the past year? 1 or 2 drinks (0 point) How often did you have a drink containing alcohol in the past year? Monthly or less (1 point) Tobacco Use: Social Info Question Answer Notes Tobacco Control (Standard) Tobacco use: Uses tobacco i n other forms When did you stop smoking? 06/07/2013 How long has it been since you last smoked? Greater than 10 years Additional Details Category Social Info Options Details Miscellaneous: Occupation: Information T echnology Audit Coordinator Section Notes: Lives in [place] with 2nd of 2 yrs and his child and their 2 step children. Grew up local, 1 sibling. 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 Lives in [place] with 2nd of 2 yrs and his child and their 2 step children. Grew up local, 1 sibling. 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 Lives in [place] with 2nd of 2 yrs and his child and their 2 step children. Grew up local, 1 sibling. 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 Lives in [place] with 2nd of 2 yrs and his child and their 2 step children. Grew up local, 1 sibling. 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 Lives in [place] with 2nd of 2 yrs and his child and their 2 step children. Grew up local, 1 sibling. 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 Lives in [place] with 2nd of 2 yrs and his child and their 2 step children. Grew up local, 1 sibling. 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 Lives in [place] with 2nd of 2 yrs and his child and their 2 step children. Grew up local, 1 sibling. 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 Lives in [place] with 2nd of 2 yrs and his child and their 2 step children. Grew up local, 1 sibling. 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 Lives in [place] with 2nd of 2 yrs and his child and their 2 step children. Grew up local, 1 sibling. 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 Lives in [place] with 2nd of 2 yrs and his child and their 2 step children. Grew up local, 1 sibling. 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 Lives in [place] with 2nd of 2 yrs and his child and their 2 step children. Grew up local, 1 sibling. 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 Lives in [place] with 2nd of 2 yrs and his child and their 2 step children. Grew up local, 1 sibling. 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 Lives in [place] with 2nd of 2 yrs and his child and their 2 step children. Grew up local, 1 sibling. 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 Lives in [place] with 2nd of 2 yrs and his child and their 2 step children. Grew up local, 1 sibling. 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 Lives in [place] with 2nd of 2 yrs and his child and their 2 step children. Grew up local, 1 sibling. 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 Lives in [place] with 2nd of 2 yrs and his child and their 2 step children. Grew up local, 1 sibling. 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 Lives in [place] with 2nd of 2 yrs and his child and their 2 step children. Grew up local, 1 sibling. 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 Lives in [place] with 2nd of 2 yrs and his child and their 2 step children. Grew up local, 1 sibling. 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 Lives in [place] with 2nd of 2 yrs and his child and their 2 step children. Grew up local, 1 sibling. 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 Lives in [place] with 2nd of 2 yrs and his child and their 2 step children. Grew up local, 1 sibling. 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 Problems Problem Type SNOMED Code ICD Code Onset Dates Problem Status W/U Status Risk Notes Problem Mild recurrent major depression (46492213) Major depressive disorder, recurrent, mild (F33.0) Active confirmed Problem Moderate recurrent major depression (06352465) Major depressive disorder, recurrent, moderate (F33.1) Active confirmed Problem Generalized anxiety disorder (93672620) Generalized anxiety disorder (F41.1) Active confirmed Problem Chronic insomnia (461371391) Chronic insomnia (F51.04) Active confirmed Problem Nondependent cannabis abuse (538550285) Marijuana use (F12.90) Active confirmed Problem Obstructive sleep apnea (12699864) Obstructive sleep apnea (G47.33) Active confirmed Problem Panic disorder (125217185) Panic attacks (F41.0) Active confirmed Problem Moderate recurrent major depression (11145109) Moderate recurrent major depression (F33.1) Active confirmed Problem Tobacco use (416612193) Nicotine use (Z72.0) Active confirmed Vital Signs Heart Rate 52 /min 08/02/2025 Height-cm 175.26 cm 08/02/2025 Blood pressure diastolic 90 mm Hg 08/02/2025 Weight-kg 93.99 kg 08/02/2025 Height 69 in 08/02/2025 Blood pressure systolic 152 mm Hg 08/02/2025 Weight 207.2 lbs 08/02/2025 BMI 30.59 kg/m2 08/02/2025 Encounters Encounter Location Date Provider Diagnosis [address] [address] 10/05/2024 Jessica Martinez [address] [address] 09/09/2024 Jessica Martinez Generalized anxiety disorder F41.1 ; Panic attacks F41.0 and Moderate recurrent major depression F33.[address] [address] 10/04/2024 Judy Meneses Moderate recurrent major depression F33.1 ; Generalized anxiety disorder F41.1 ; Panic attacks F41.0 ; Chronic insomnia F51.04 and Marijuana use F12.[address] [address] 11/15/2024 Judy Meneses Moderate recurrent major depression F33.1 ; Generalized anxiety disorder F41.1 ; Panic attacks F41.0 ; Chronic insomnia F51.04 and Marijuana use F12.[address] [address] 12/20/2024 Jessica Martinez Generalized anxiety disorder F41.1 ; Panic attacks F41.0 and Moderate recurrent major depression F33.[address] [address] 12/28/2024 Judy Meneses Moderate recurrent major depression F33.1 ; Generalized anxiety disorder F41.1 ; Panic attacks F41.0 ; Chronic insomnia F51.04 ; Marijuana use F12.90 and Obstructive sleep apnea G47.[address] [address] 01/18/2025 Jessica Martinez Generalized anxiety disorder F41.1 ; Panic attacks F41.0 ; Moderate recurrent major depression F33.1 and Encounter for screening for depression Z13.31 [place] [address] [facility] [address] [place] [address] 02/07/2025 Judynataliia Meneses Major depressive disorder, recurrent, mild F33.0 ; Generalized anxiety disorder F41.1 ; Chronic insomnia F51.04 ; Panic attacks F41.0 ; Nicotine use Z72.0 ; Encounter for screening for cardiovascular disorders Z13.6 ; Dietary counseling and surveillance Z71.3 and Encounter for screening for depression Z13.[address] [facility] [address] [place] [address] 02/16/2025 Jessica Hemann Encounter for screening for depression Z13.31 ; Moderate recurrent major depression F33.1 and Generalized anxiety disorder F41.[address] [facility] [address] [place] [address] 03/16/2025 Jessica Hemann Encounter for screening for depression Z13.31 ; Moderate recurrent major depression F33.1 ; Panic attacks F41.0 and Generalized anxiety disorder F41.[address] [address] 04/04/2025 Judynataliia Mullinsroge Generalized anxiety disorder F41.1 ; Major depressive disorder, recurrent, mild F33.0 ; Chronic insomnia F51.04 ; Panic attacks F41.0 ; Nicotine use Z72.0 ; Obstructive sleep apnea G47.33 ; Encounter for screening for cardiovascular disorders Z13.6 and Encounter for screening for depression Z13.31 [place] [id number] [facility] [address] [address] 04/04/2025 Jessica Hemann Moderate recurrent major depression F33.1 ; Panic attacks F41.0 and Generalized anxiety disorder F41.[address] [facility] [address] [place] [address] 05/04/2025 Jessica Hemann Moderate recurrent major depression F33.1 ; Panic attacks F41.0 ; Generalized anxiety disorder F41.1 and Encounter for screening for depression Z13.[address] [facility] [address] [place] [address] 06/08/2025 Jessica Hemann Moderate recurrent major depression F33.1 ; Panic attacks F41.0 and Generalized anxiety disorder F41.[address] [facility] [address] [place] [address] 07/05/2025 Judy Meneses Generalized anxiety disorder F41.1 ; Major depressive disorder, recurrent, moderate F33.1 ; Chronic insomnia F51.04 and Panic attacks F41.0 [facility], [facility] [address] [place] [address] 07/06/2025 Jessica Atwoodann Moderate recurrent major depression F33.1 ; Panic attacks F41.0 and Generalized anxiety disorder F41.1 [facility], [facility] [address] [place] [address] 08/02/2025 Judy Meneses Major depressive disorder, recurrent, mild F33.0 ; Generalized anxiety disorder F41.1 ; Chronic insomnia F51.04 and Obstructive sleep apnea G47.33 [facility], [facility] [address] [place] [address] 11/26/2024 Jessica Martinez [facility], [facility] [address] [place] [address] 11/03/2024 Judy Meneses [facility], [facility] [address] [place] [address] 11/15/2024 Judy [facility] [place], [facility] [address] [place] [address] 01/13/2025 [facility], [facility] [address] [place] [address] 01/13/2025 Judy Meneses Chronic insomnia F51.04 [facility], [facility] [address] [place] [address] 01/31/2025 Judy Meneses [facility], [facility] [address] [place] [address] 01/31/2025 Judy Meneses [facility], [facility] [address] [place] [address] 01/31/2025 [facility], [facility] [address] [place] [address] 02/01/2025 Judy Meneses [facility], [facility] [address] [place] [address] 04/22/2025 Judy Meneses [facility], [facility] [address] [place] [address] 05/07/2025 Judy Meneses Chronic insomnia F51.04 and Major depressive disorder, recurrent, mild F33.0 [facility] [address] [facility] [address] [place] [address] 05/07/2025 Judy Meneses Major depressive disorder, recurrent, mild F33.0 [facility] [address] [facility] [address] [place] [address] 05/07/2025 Judy Meneses [facility], [facility] [address] [facility] [address] [place] [address] 07/12/2025 Judy Meneses [facility], [facility] [address] [address] 08/21/2025 Judy Meneses [facility], [facility] [address] [address] 08/22/2025 [facility] [place] [address] [address] [facility] [address] [address] 08/22/2025 Judy Meneses Assessments Encounter Date Diagnosis (ICD Code) Assessment Notes Treatment Notes Treatment Clinical Notes Section Notes 09/09/2024 Generalized anxiety disorder (ICD-10 - F41.1) 09/09/2024 Panic attacks (ICD-10 - F41.0) 10/04/2024 Generalized anxiety disorder (ICD-10 - F41.1) [...] on the patient's response to treatment. 11/15/2024 Moderate recurrent major depression (ICD-10 - [...] based on the patient's response to treatment. 12/20/2024 Generalized anxiety disorder (ICD-10 - F41.1) 12/20/2024 Panic attacks (ICD-10 - F41.0) 12/28/2024 Generalized anxiety disorder (ICD-10 - F41.1) [...] on the patient's response to treatment. 12/28/2024 Moderate recurrent major depression (ICD-10 - [...] based on the patient's response to treatment. 01/13/2025 Chronic insomnia (ICD-10 - F51.04) 01/18/2025 Generalized anxiety disorder (ICD-10 - F41.1) 02/07/2025 Major depressive disorder, recurrent, mild (ICD-10 - F33.0) 01/18/2025 Panic attacks (ICD-10 - F41.0) 02/16/2025 Encounter for screening for depression (ICD-10 - Z13.31) 02/16/2025 Moderate recurrent major depression (ICD-10 - F33.1) 03/16/2025 Encounter for screening for depression (ICD-10 - Z13.31) 03/16/2025 Moderate recurrent major depression (ICD-10 - F33.1) 04/04/2025 Moderate recurrent major depression (ICD-10 - F33.1) 04/04/2025 Major depressive disorder, recurrent, mild (ICD-10 - F33.0) 04/04/2025 Generalized anxiety disorder (ICD-10 - F41.1) 05/04/2025 Moderate recurrent major depression (ICD-10 - F33.1) 05/07/2025 Chronic insomnia (ICD-10 - F51.04) 05/07/2025 Major depressive disorder, recurrent, mild (ICD-10 - F33.0) 06/08/2025 Moderate recurrent major depression (ICD-10 - F33.1) 07/05/2025 Major depressive disorder, recurrent, moderate (ICD-10 - F33.1) Electronic Prior Authorization was requested for Trintellix 20 MG Tablet. Provider can order medication once approval received. 07/05/2025 Generalized anxiety disorder (ICD-10 - F41.1) 07/06/2025 Moderate recurrent major depression (ICD-10 - F33.1) 08/02/2025 Major depressive disorder, recurrent, mild (ICD-10 - F33.0) 08/02/2025 Generalized anxiety disorder (ICD-10 - F41.1) 08/02/2025 Chronic insomnia (ICD-10 - F51.04) 07/06/2025 Panic attacks (ICD-10 - F41.0) 07/05/2025 Chronic insomnia (ICD-10 - F51.04) 05/04/2025 Panic attacks (ICD-10 - F41.0) 06/08/2025 Panic attacks (ICD-10 - F41.0) 05/07/2025 Major depressive disorder, recurrent, mild (ICD-10 - F33.0) 04/04/2025 Chronic insomnia (ICD-10 - F51.04) 02/16/2025 Generalized anxiety disorder (ICD-10 - F41.1) 04/04/2025 Panic attacks (ICD-10 - F41.0) 03/16/2025 Panic attacks (ICD-10 - F41.0) 01/18/2025 Moderate recurrent major depression (ICD-10 - F33.1) 02/07/2025 Generalized anxiety disorder (ICD-10 - F41.1) 10/04/2024 Panic attacks (ICD-10 - F41.0) Assessment [...] on the patient's response to treatment. 12/28/2024 Panic attacks (ICD-10 - F41.0) Depression [...] based on the patient's response to treatment. 12/20/2024 Moderate recurrent major depression (ICD-10 - [...] on the patient's response to treatment. 09/09/2024 Moderate recurrent major depression (ICD-10 - F33.1) 10/04/2024 Chronic insomnia (ICD-10 - F51.04) Assessment [...] on the patient's response to treatment. 11/15/2024 Panic attacks (ICD-10 - F41.0) Depression [...] on the patient's response to treatment. 12/28/2024 Chronic insomnia (ICD-10 - F51.04) Depression [...] treatment. 02/07/2025 Chronic insomnia (ICD-10 - F51.04) 03/16/2025 Generalized anxiety disorder (ICD-10 - F41.1) 04/04/2025 Generalized anxiety disorder (ICD-10 - F41.1) 04/04/2025 Panic attacks (ICD-10 - F41.0) 05/04/2025 Generalized anxiety disorder (ICD-10 - F41.1) 06/08/2025 Generalized anxiety disorder (ICD-10 - F41.1) 07/05/2025 Panic attacks (ICD-10 - F41.0) 07/06/2025 Generalized anxiety disorder (ICD-10 - F41.1) 08/02/2025 Obstructive sleep apnea (ICD-10 - G47.33) 05/04/2025 Encounter for screening for depression (ICD-10 - Z13.31) 04/04/2025 Nicotine use (ICD-10 - Z72.0) 02/07/2025 Panic attacks (ICD-10 - F41.0) 12/28/2024 Marijuana use (ICD-10 - F12.90) Depression [...] on the patient's response to treatment. 01/18/2025 Encounter for screening for depression (ICD-10 [...] on the patient's response to treatment. 11/15/2024 Chronic insomnia (ICD-10 - F51.04) Depression [...] on the patient's response to treatment. 12/28/2024 Obstructive sleep apnea (ICD-10 - G47.33) [...] on the patient's response to treatment. 02/07/2025 Nicotine use (ICD-10 - Z72.0) 04/04/2025 Obstructive sleep apnea (ICD-10 - G47.33) 04/04/2025 Encounter for screening for cardiovascular disorders (ICD-10 - Z13.6) 02/07/2025 Encounter for screening for cardiovascular disorders (ICD-10 - Z13.6) 02/07/2025 Dietary counseling and surveillance (ICD-10 - Z71.3) 02/07/2025 Encounter for screening for depression (ICD-10 - Z13.31) 04/04/2025 Encounter for screening for depression (ICD-10 - [...] primary care physician regarding sleep apnea evaluation 04/04/2025 Other Myles Leger, male patient with history of anxiety and depression, presenting with increased stressors, more frequent panic attacks, and improved sleep. Generalized Anxiety Disorder with Panic Attacks Assessment: Patient reports increased stressors, particularly related to conflicts with ex- about daughter's transportation to work. He notes experiencing more frequent panic attacks than usual. Sleep has improved, waking only once per night to use the bathroom. Patient mentions being able to relax now, suggesting some improvement in overall anxiety management. Friday remains a trigger point for anxiety. Plan: - Continue aripiprazole 5 mg - Continue sertraline 200 mg daily (100 mg tablets, take 2) - Continue trazodone 100 mg at bedtime - Monitor frequency and severity of panic attacks - Encourage continued use of relaxation techniques - Follow up in 3 months or sooner if needed Depressive Disorder Assessment: Patient reports mood as up and down, attributing fluctuations primarily to increased stress. No current suicidal ideation reported. Plan: - Continue current medication regimen (as listed above) - Monitor mood symptoms - Follow up in 3 months or sooner if needed Sleep Disturbance Assessment: Patient reports improved sleep, waking only once per night to use the bathroom. He attributes this improvement potentially to the combination of current interventions. Plan: - Continue trazodone 100 mg at bedtime - Patient to discuss potential CPAP therapy with new primary care physician at upcoming appointment Medication Management Assessment: Patient expresses concern about medication costs and desires to transfer prescriptions to [facility] pharmacy for potential cost savings. Plan: - Transfer prescriptions to [facility] pharmacy in [place] - Provide 90-day supply of medications when possible - Discontinue losartan as patient reports no longer taking it 07/05/2025 Other Myles Leger presents with worsening irritability, crankiness, and anger, along with anxiety symptoms. Patient has a history of anxiety since teenage years and is currently on sertraline and aripiprazole. Major Depressive Disorder with Anxiety Assessment: Patient reports increased irritability, crankiness, and anger, along with some anxiety symptoms. Current medication regimen includes sertraline 200mg and aripiprazole 5mg, with transient use of buspirone 100mg PRN. Patient has been on sertraline for approximately a year but does not recall it being beneficial. Previous trials of duloxetine and escitalopram were unsuccessful. Given the persistent symptoms and lack of significant improvement with current treatment, a medication change is warranted. Plan: - Discontinue sertraline: - Week 1: Decrease to 150mg daily - Week 2: Decrease to 100mg daily - Week 3: Decrease to 50mg daily - Week 4: Stop - Start Trintellix: - Weeks 1-2: 5mg PO daily - Week 3 onwards: Increase to 10mg PO daily - Informed patient about potential benefits: improvement in depression, anxiety, and cognition - Discussed side effect profile: mild to non-existent sexual dysfunction, not typically sedating or activating - Recommended morning administration - Continue aripiprazole 5mg - Continue buspirone 100mg, 1-2 tablets PRN - Follow-up appointment in 4 weeks Medical Decision Making Myles Leger is a patient with a history of anxiety and depression presenting with increased irritability and anger. The patient reports feeling pissy and cranky, taking out frustrations on others. Current medications include sertraline 200mg and aripiprazole 5mg. The clinician is considering a medication change due to lack of efficacy of the current regimen. After reviewing the patient's medication history, including previous trials of bupropion and escitalopram, the decision was made to switch from sertraline to Trintellix. This choice was based on Trintellix's potential benefits for both depression and anxiety, as well as its cognitive-enhanci ng properties and favorable side effect profile. The clinician considered the duration of the patient's symptoms, the length of time on sertraline (approximately one year), and the lack of perceived benefit from the current medication regimen in making this decision. 08/02/2025 Other Myles Leger, male patient with a history of depression and anxiety, presenting for medication management and follow-up. Major Depressive Disorder Assessment: Patient reports improvement in depressive symptoms with current medication regimen. He notes a slowing down of racing thoughts (light has slowed down) and sees some low-positive signs. Motivation and enjoyment of activities have improved. No current suicidal ideation reported. Sleep is adequate with trazodone, though complicated by recent illness affecting sleep apnea management. Appetite is unchanged. Patient is tolerating Trintellix despite initial nausea, which has improved with time and B6 supplementation. Plan: - Continue Trintellix 20 mg daily - Continue aripiprazole 5 mg daily - Continue trazodone 100 mg, 1-2 tablets at bedtime as needed for sleep - Follow up in 6-8 weeks via virtual visit due to upcoming foot surgery - Monitor for continued improvement in depression, motivation, energy, and fatigue Anxiety Disorder Assessment: Patient reports improvement in anxiety symptoms, which are now better and more manageable. No recent panic attacks reported. Current medication regimen appears effective in managing anxiety symptoms. Plan: - Continue current medication regimen as noted above - Monitor for sustained improvement in anxiety symptoms Obstructive Sleep Apnea Assessment: Patient reports ongoing use of CPAP for obstructive sleep apnea. Recent illness has affected sleep apnea management. Plan: - Continue utilizing CPAP as tolerated - Monitor for improvement in sleep quality Upcoming Foot Surgery Assessment: Patient reports scheduled right foot surgery in approximately one month. This will impact his ability to drive and walk for the following month. Plan: - Schedule virtual follow-up visit in 6-8 weeks to accommodate post-surgical mobility limitations Medical Decision Making Myles Leger is a male patient with a history of depression and obstructive sleep apnea presenting for medication management. The patient reports improvement in mood and anxiety with current medications, including Trintellix, aripiprazole, and trazodone. Initial nausea from Trintellix has improved over time, with B6 supplementation helping manage residual symptoms. The patient's primary complaint of racing thoughts (hamster wheel) has shown improvement. Sleep is adequate with trazodone, though current illness is affecting sleep apnea management. No suicidal ideation or panic attacks are reported. The patient's upcoming foot surgery is considered in the treatment plan, as it will impact mobility and follow-up capabilities. Given the overall positive response to the current medication regimen and the patient's preference for stability before surgery, the decision is made to continue the current treatment plan without changes. Plan Of Treatment Next Appt Details Provider Name:Jessica Martinez, 09/27/2025 09:00:00 AM, [address], [address], [place], [address], Provider Name:Judy salazar, 09/28/2025 10:15:00 AM, [address], [address], [place], [address], Insurance Providers Payer Name Payer Address Payer Phone Subscriber Number Group Number Insured Name Patient Relationship to Insured Coverage Start Date Coverage End Date [employer] [address] [place] [address] [id number] [place] Myles Self - patient is the insured 5 [facility] [address] [place] [phone] [id number] Myles Leger Self - patient is the insured 5 Medical (General) History Medical History History ICD Code Past Psychiatric History: Anxiety Disord er,PTSD,Major Depressive Episode undefined vitamin D deficiency restless leg syndrome Surgical History Surgery Date(Month/Year) hernia 2006 Hospitalization History Reason Date(Month/Year) hernia surgery 2006
--- NOTE | 2025-09-06 08:41 | ECG_ITS ---
Test Date: 2025-09-06 08:47:53 Measurements Intervals [place] Rate: 55 P: 15 PA: 172 QRS: 24 QRSD: 114 T: 31 QT: 420 QTc: 404 Interpretive Statements SINUS BRADYCARDIA MODERATE INTRAVENTRICULAR CONDUCTION DELAY [110+ ms QRS DURATION] No previous ECG available for comparison Electronically Signed On 09-06-2025 17:57:04 BEHAVIORAL MODIFICATION ASSISTANT by Coni Mark M.D.
== END 2025-09-06 07:17 | disposition home or self-care (01) ==
LOC: ANHCARD 07:18
PROVIDERS: PCP Family Medicine; Visit Provider Anesthesiology
DX: E78.5 Hyperlipidemia, unspecified (principal); Z01.818 Encounter for other preprocedural examination; Z87.891 Personal history of nicotine dependence
CPT/HCPCS: 93005

== ENCOUNTER 2025-09-09 05:50 | Day surgery (SDC) | payer OTHER, SELFPAY ==
[2025-08-31 08:56] VITALS: BMI 29.6
[2025-09-09] VITALS (7 sets, daily range): BP systolic 122–153; BP diastolic 70–88; PULSE 50–67; RESP 14–18; TEMP 36.3–36.8; O2SAT 94–100; BMI 31.1
--- NOTE | ~2025-09-09 | XR_ITS ---
EXAM/PROCEDURE: XR surgery orthopedic HISTORY: RIGHT FOOT BUNIONECTOMY/ DARCY PHALANGEAL OSTEOTOMY RT HALLUX COMPARISON: None available. TECHNIQUE: Fluoroscopic spot images for internal fixation. Fluoroscopy time: 0.7 minutes. DAP: 2.6533 cGy square centimeter Number of images: 2 IMPRESSION: Fluoroscopic spot images for internal fixation of the right foot. See surgical/operative notes for complete details. Reviewed, dictated and finalized at location A. [facility] IMPRESSION: Fluoroscopic spot images for internal fixation of the right foot. See surgical/ operative notes for complete details.
--- NOTE | 2025-09-09 07:09 | WPDHPUPDATE1 ---
History and Physical Update Update Date/Time: 09/09/25 07:09 History and Physical has been reviewed, including an updated exam of the patient. There are NO changes in the patient's condition. Risks, benefits, and alternatives have been discussed and questions answered. Patient agrees to proceed with procedure.
--- NOTE | 2025-09-09 07:12 | WPDANESEPPF ---
Anes - Initial Pre Proc Eval Procedure: Operation Date: 09/09/25 07:30 Proposed Procedures p Lapidus Bunionectomy Right Foot - Enrique Tineo Jr., DPM s Wild Phalangeal Osteotomy Right Hallux - Enrique Tineo Jr., DPM Date/Time: 09/09/25 07:12 Surgeon: Enrique Tineo Jr., DPM Pre Op Diagnosis: Bunion Right Foot Patient Data Age: 45 Gender: M Height: 1.75 m Weight: 95.5 kg Last Vital Signs Temp 98.2 F 09/09/25 06:29 Pulse 62 09/09/25 06:29 Resp 18 09/09/25 06:29 BP 137/77 09/09/25 06:29 Pulse Ox 99 09/09/25 06:29 O2 Del Method Room Air 09/09/25 06:29 Allergies Allergy/AdvReac Type Severity Reaction Status Date / Time Penicillins Allergy Severe HIVES Verified 08/31/25 08:53 Sulfa (Sulfonamide Allergy Intermediate Hives Verified 08/31/25 08:53 Antibiotics) sulfamethoxazole Allergy rash Verified 08/31/25 08:53 trimethoprim Allergy rash Verified 08/31/25 08:53 Home Medications ?Medication ?Instructions ?Recorded ?Confirmed ?Type esomeprazole magnesium 20 mg 20 mg PO DAILY 02/06/23 09/09/25 History capsule,delayed release (Nexium) trazodone 150 mg tablet 150 mg PO QHS PRN Sleep 02/06/23 09/09/25 History aripiprazole 5 mg tablet 5 mg PO DAILY 03/18/25 09/09/25 History atorvastatin 20 mg tablet 20 mg PO QPM 03/18/25 09/09/25 History vortioxetine 20 mg tablet 20 mg PO DAILY 08/31/25 09/09/25 History (Trintellix) oxycodone-acetaminophen 5 mg-325 1 tablet PO Q6H PRN pain #40 tabs 09/07/25 Rx mg tablet (Percocet) rivaroxaban 10 mg tablet (Xarelto) 10 mg PO DAILY #14 tabs 09/07/25 Rx Patient hx anesthesia problems: none Family hx anesthesia problems: none Results Review: All pre-operative results and documents have been reviewed as part of the pre-operative evaluation. [facility] Past Medical History Medical History Diarrhea GERD (gastroesophageal reflux disease) Rectal itching Social History Social History Smoking status: Current every day smoker Tobacco type: cigarettes Second hand tobacco smoke exposure: Yes Substance use: current Substance use type: marijuana Other substance usage details: daily Living arrangements: with family Anes - Eval Final PreProcedure Day of Procedure 09/09/25 07:12 Heart: regular rate and rhythm Lungs: clear to auscultation Airway: Mallampati scale class II Neurological: alert and oriented Last oral intake: >/= 8 hours ASA classification: II Anesthetic plan: proceed Anesthesia type and monitoring: general Results Review: All pre-operative results and documents have been reviewed as part of the pre-operative evaluation. Informed Consent: The patient's anesthetic plan and its attendant risks and benefits were discussed with the patient/family/POA. Questions were solicited and answers provided to the satisfaction of the patient/family/POA.
[2025-09-09] MEDS: LACTATED RINGERS 1,000 ML 30 ML IV CONT ×2 (07:30→09:41)
[2025-09-09] MEDS: ceFAZolin SODIUM 2 GM/20 ML SW SYRINGE IV PUSH (07:31)
--- NOTE | 2025-09-09 08:46 | SUR.OPER ---
Arthrex dynaNite nitinol staple with instrumentation [id number] [id number]
[2025-09-09] MEDS: BUPivacaine HCL 0.5% 10 ML AMP 20 ML (09:08)
[2025-09-09] MEDS: LIDOCAINE 2% LOCAL INJ 20 ML VIAL (09:09)
--- NOTE | 2025-09-09 09:32 | W.PM.PROC2 ---
Procedure Note - Detailed Date of Procedure 09/09/25 Pre-op Diagnosis Bunion Right Foot Post-op Diagnosis Same Procedure Performed 1. Lapidus Bunionectomy right foot 2. Wild Phalangeal osteotomy right hallux Surgeon Enrique Tineo Jr., DPM Anesthesia General and Local Indications Painful bunion deformity right foot Findings Prominent right 1st metatarsal head no joint degeneration to the first metatarsal phalangeal joint Description of Procedure Under mild sedation, the patient was brought to the operating room, placed on the operating table in the supine position.? A pneumatic ankle tourniquet was placed about the patient's ankle. Following general anesthesia I performed an ankle ring block with 20cc of a 1:1 mix of 2% Lidocaine plain and 0.5% Marcaine plain, the foot was then scrubbed, prepped, and draped in the usual aseptic manner.? An Esmarch bandage was then used to examine the patient's foot and pneumatic ankle tourniquet was then inflated. ? Surgery began in the following manner.? Attention was directed to the dorsal aspect of the 1st metatarsocuneiform of the foot where fluoroscopy was used to identify the joint. ? A 3 cm incision was made overlying the dorsal aspect of the 1st metatarsocuneiform joint of the foot just medial to the extensor hallucis longus tendon.? The incision was then continued deep down through the subcutaneous tissues using sharp and blunt dissection.? All bleeders were ligated and cauterized as necessary.? At this point, the extensor tendon was identified and reflected laterally.? Next, the periosteum and capsular incision was made at the full length of the skin incision exposing the medial cuneiform as well as the base of the 1st metatarsal.? Next, a sagittal bone saw was introduced from dorsal to plantar across the 1st metatarsocuneiform joint in order to free up any ankylosed portions of the joint and also to release any adhesions. Two Steinmann Pins were driven from dorsal to plantar 1cm proximal and distal to the 1st metatarsal cuneiform joint. Next, a sharp curved osteotome and curette was used to resect the cartilage and subchondral bone and a 2.0mm drill bit was used to fenestrate the joint to promote fusion. ? At this point, a small 1 cm incision was made along the medial aspect of the 1st intermetatarsal space just medial to the second metatarsal head. Next, a lateral release consisting of a lateral capsule incision as well as release of the adductor hallucis tendon with the tenotomy as well as releasing the distal aspect and lateral aspect and proximal aspect of the fibular sesamoid.? After this, a lateral release was performed.? The hallux lateral deviation was noted to be reduced as far as the track-bound hallux. Next a 3cm incision was made medial to the first metatarsal head extending proximal to the proximal phalanx.? A 0.062 K wire was driven from dorsal medial to plantar lateral across the 1st metatarsal head and a second 0.062 K wire driven from the dorsal aspect of the second metatarsal head. Next, the Arthrex Lapidus clamp was used to obtain 3 plane correction of the hallux abductovalgus deformity. Fluoroscopy was used to make sure that the 1st MPJ was congruous and the sesamoid apparatus was centered under the first metatarsal and also to make certain that there was no elavatus of the first ray. ? Next, an Arthrex Headless 4.0 mm cannulated screw was driven from the medial base of the 1st metatarsal to the second metatarsal base under fluoroscopic guidance Excellent compression was noted across the joint. Moreover, the Arthrex dorsal Lapidus linear 5 hole plate was placed along the dorsal medial aspect of the 1st metatarsal cuneiform joint and the two 3.0mm proximal locking screws were drilled from dorsal to plantar. Next the one eccentrically drilled non locking screws was used to further compress the joint to ensure arthrodesis. Finally the most distal 3.0mm locking screw was drilled from dorsal to plantar across the plate into the metatarsal shaft. At this point the Arthrex Lapidus clamp was removed and fluoroscopy was used to make sure that the deformity correction was maintained. The patient still had slight hallux abductus so I made a closing medial base wedge resection from the base of the proximal phalanx and compressed the osteotomy with an Arthrex 7x9mm nitinol compression staple. After the Wild osteotomy the hallux was noted to be in a rectus position. ? The periosteum and capsular structures were debrided performing a capsulorrhaphy which was reapproximated and coapted utilizing horizontal mattress as well as simple interrupted suture fashion technique along the 1st metatarsophalangeal joint and then 3-0 Vicryl was then used to reapproximate the medial capsule. Next the capsular and periosteal structures over the 1st metatarsocuneiform joint of the? foot.? Next, the subcutaneous structures were reapproximated and coapted utilizing 4-0 Vicryl.? Next, the skin was reapproximated and coapted utilizing 4-0 Monocryl in running subcuticular suture fashion technique. ? Upon completion of the procedure, the incision was dressed with Steri-Strips, Adaptic, 4 x 4's, Kerlix, and Coban.? The pneumatic ankle tourniquet was then deflated and a prompt hyperemic response noted to all digits of the foot. A posterior splint was then applied with the foot held 90 degrees to the leg. ? The patient did very well with the procedure and the anesthesia.? The patient was transferred to the recovery room with vital signs stable and vascular status intact to all toes of the foot.? Following a period of postoperative monitoring, the patient will be discharged home on the following written and oral postoperative instructions: 1. Keep the dressing clean, dry, and intact.? Use a cast protector bag with showers. 2. The patient to be strictly nonweightbearing with a knee scooter. 3. The patient should ice and elevate the? foot when at rest. 4. The patient to contact Dr. Tineo for all postop care and if any problems arise. 5. Prescriptions were written for Percocet 5/325 dispensed 40 to be taken 1 p.o. q.4 to 6 hours as needed for severe pain. Implants Arthrex Lapidus Linear 5 hole plate with 3 locking and 1 non locking 3.0mm screws One Arthrex 4-0 Headless Cannulated Screw One Arthrex Nitinol 7x9mm Staple Estimated Blood Loss 1 Drains No Packing No Pathology None sent Complications No immediate complications Condition Stable Disposition Same day
[2025-09-09] MEDS: fentaNYL CITRATE INJ (*CRX) 100 MCG/2 ML VIAL 25 MCG IV PUSH ×2 (09:46→09:50)
[2025-09-09] MEDS: oxyCODONE HCL (*CRX) 5 MG TAB IR PO (10:38)
== END 2025-09-09 10:50 | disposition home or self-care (01) ==
LOC: ASC 06:14
PROVIDERS: PCP Family Medicine; Visit Provider Podiatrist Foot & Ankle Surgery
PROC: (CPT 28299; principal; 2025-09-09 07:30)
PROC: (CPT 28750; 2025-09-09 07:30)
DX: M21.611 Bunion of right foot (principal)
CPT/HCPCS: 28298; 99199